=== PATIENT | male | born 1985 | race Caucasian/White ===

== ENCOUNTER 2017-11-12 21:09 | Inpatient (IN) | payer SELFPAY ==
[2017-11-12] MEDS ORDERED: NORMAL SALINE 1000 ML 1,000 ML IV ONE (22:02)
--- NOTE | 2017-11-12 22:02 | ER Document Report ---
ED Medical Screen (RME) - General Chief Complaint: Feet Swelling Stated Complaint: SKIN SWELLINGS Time Seen by Provider: 11/12/17 21:57 Mode of Arrival: Ambulatory Information source: Patient Notes: Patient presents complaining of enlarged lymph node to bilateral axillary area cervical and clavicular area. Patient complains of peripheral swelling to his lower extremities. Patient tachycardic. Patient denies any dyspnea or chest pain. hx: None I have greeted and performed a rapid initial assessment of this patient. A comprehensive ED assessment and evaluation of the patient, analysis of test results and completion of the medical decision making process will be conducted by additional ED providers. TRAVEL OUTSIDE OF THE [place] IN LAST 30 DAYS: No - Related Data Allergies/Adverse Reactions: No Known Allergies Allergy (Unverified 11/12/17 21:10) Physical Exam - Vital signs Vitals: Temp Pulse Resp BP Pulse Ox 99.6 F 127 H 20 124/74 100 11/12/17 21:25 11/12/17 21:25 11/12/17 21:25 11/12/17 21:25 11/12/17 21:25 Course - Vital Signs Vital signs: Temp Pulse Resp BP Pulse Ox 99.6 F 127 H 20 124/74 100 11/12/17 21:25 11/12/17 21:25 11/12/17 21:25 11/12/17 21:25 11/12/17 21:25
--- NOTE | 2017-11-12 22:29 | RADIOLOGY REPORT (SQ) ---
EXAM DESCRIPTION: CHEST 2 VIEWS COMPLETED DATE/TIME: 11/12/2017 10:14 pm REASON FOR STUDY: tachycardia, axillary/clavicular lymph node enlarg COMPARISON: None. EXAM PARAMETERS: NUMBER OF VIEWS: two views TECHNIQUE: Digital Frontal and Lateral radiographic views of the chest acquired. RADIATION DOSE: NA LIMITATIONS: none FINDINGS: LUNGS AND PLEURA: No opacities, masses or pneumothorax. Small to moderate left pleural ef fusion. MEDIASTINUM AND HILAR STRUCTURES: No masses or contour abnormalities. HEART AND VASCULAR STRUCTURES: Heart normal size. No evidence for failure. BONES: No acute findings. HARDWARE: None in the chest. OTHER: No other significant finding. IMPRESSION: SMALL TO MODERATE LEFT PLEURAL EFFUSION. LUNGS OTHERWISE CLEAR. TECHNICAL DOCUMENTATION: JOB ID: [id number] [employer]- All Rights Reserved Reading location - IP/workstation name: [email or web address]
[2017-11-12 23:05] LABS: ABSOLUTE BASOPHILS # (AUTO) 0.1 10^3/uL (0.0-0.2); ABSOLUTE EOSINOPHILS # (AUTO) 0.4 10^3/uL (0.0-0.6); ABSOLUTE LYMPHOCYTES (AUTO) 2.3 10^3/uL (0.5-4.7); ABSOLUTE MONOCYTES (AUTO) 1.5 10^3/uL (0.1-1.4); APPEARANCE,URINE CLEAR; BASOPHILS % (AUTO) 0.3 % (0-2); BILIRUBIN,URINE NEGATIVE (NEGATIVE); COLOR,URINE YELLOW; EOSINOPHILS % (AUTO) 2.2 % (0-6); GLUCOSE, URINE NEGATIVE (NEGATIVE); HEMATOCRIT 32.3 % (37.9-51.0); HEMOGLOBIN 11.1 g/dL (13.5-17.0); KETONES,URINE NEGATIVE (NEGATIVE); LEUKOCYTE ESTERASE,URINE NEGATIVE (NEGATIVE); LYMPHOCYTES % (AUTO) 13.4 % (13-45); MEAN CORPUSCULAR HEMOGLOBIN 28.2 pg (27.0-33.4); MEAN CORPUSCULAR HGB CONC 34.2 g/dL (32.0-36.0); MEAN CORPUSCULAR VOLUME 83 fl (80-97); MONOCYTES % (AUTO) 8.7 % (3-13); NITRITE,URINE NEGATIVE (NEGATIVE); PLATELET COUNT 390 10^3/uL (150-450); PROTEIN,URINE NEGATIVE (NEGATIVE); RED BLOOD COUNT 3.92 10^6/uL (4.35-5.55); RED CELL DISTRIBUTION WIDTH 13.1 % (11.5-14.0); SEGMENTED NEUTROPHILS % (AUTO) 75.4 % (42-78); TOTAL CELLS COUNTED % (AUTO) 100 %; URINE SPECIFIC GRAVITY 1.021; WHITE BLOOD COUNT 17.2 10^3/uL (4.0-10.5)
--- NOTE | 2017-11-12 23:07 | ER Document Report ---
ED General - General Chief Complaint: Feet Swelling Stated Complaint: SKIN SWELLINGS Time Seen by Provider: 11/12/17 21:57 Mode of Arrival: Ambulatory Notes: Patient is a 32-year-old male presents with complaint of records several weeks developing multiple large lymph nodes. He first noticed a mass in his left upper breast or pectoral muscle area. He saw Dr. mckeon told was probably a lipoma. It has increased in size now he is noticed lymph node in his neck, axilla, and also small lymph node or lump on the right side. Over the last couple days she has felt swelling in his lower extremities. He is also developed a fast heart rate. She never had anything like this before. Is otherwise healthy. 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 Denies any testicular pain or swelling. He does admit to some frequent urination. TRAVEL OUTSIDE OF THE [place] IN LAST 30 DAYS: No - Related Data Allergies/Adverse Reactions: No Known Allergies Allergy (Unverified 11/12/17 21:10) Past Medical History - General Information source: Patient - Social History Smoking Status: Current Every Day Smoker Frequency of alcohol use: None Drug Abuse: None Family History: Reviewed & Not Pertinent Review of Systems - Review of Systems Notes: My Normal Review Basic REVIEW OF SYSTEMS: CONSTITUTIONAL : Denies fever, chills, or sweats. Denies recent illness. CARDIOVASCULAR: Denies chest pain. Tachycardia RESPIRATORY: Denies cough, cold, or chest congestion. Some dyspnea GASTROINTESTINAL: Denies abdominal pain. Denies nausea, vomiting, or diarrhea. GENITOURINARY: Denies difficulty urinating, painful urination, burning, frequency, or blood in urine. MUSCULOSKELETAL: Edema in lower extremities SKIN: Denies rash or skin lesions. HEMATOLOGIC : Denies easy bruising or bleeding. LYMPHATIC: Swollen lymph nodes NEUROLOGICAL: Denies altered mental status or loss of consciousness. Denies headache. Denies weakness or paralysis or loss of use of either side. Denies problems with gait or speech. Denies sensory or motor loss. ALL OTHER SYSTEMS REVIEWED AND NEGATIVE. Physical Exam - Vital signs Vitals: Temp Pulse Resp BP Pulse Ox 99.6 F 127 H 20 124/74 100 11/12/17 21:25 11/12/17 21:25 11/12/17 21:25 11/12/17 21:25 11/12/17 21:25 - Notes Notes: General Appearance: Well nourished, alert, cooperative, no acute distress, no obvious discomfort. Vitals: reviewed, See vital signs table. 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 Left eye has normal extraocular motion., Conjuctiva clear Mouth: No decreasd moisture Neck: Supple, no neck tenderness, No thyromegaly, large lymph node in left neck. Lungs: No wheezing, No rales, No rhonci, No accessory muscle use, good air exchange bilaterally. Heart: Tachycardic rate, Regular rythm, No murmur, no rub Chest wall: Large mass in left upper pectoral area. Abdomen: Normal BS, soft, No rigidity, No abdominal tenderness, No guarding, no rebound, no abdominal masses, no organomegaly Genital: No scrotal masses to palpation. Extremities: strength 5/5 in all extremities, good pulses in all extremities, no swelling or tenderness in the extremities, 2+ bilateral lower extremity edema. Skin: warm, dry, appropriate color, no rash Neuro: speech clear, oriented x 3, normal affect, responds appropriately to questions. Course - Re-evaluation Re-evalutation: 11/13/17 01:[address]'s CT scan concerned that the patient most likely has cancer, probably lymphoma. I did discuss the case with the hospitalist, Dr. Ambriz, who requested I speak with the on-call oncologist first. I spoke with Dr. Canales , she says she feels comfortable with working up the patient here. She said the patient will need an excisional lymph node biopsy followed by PET scan. I spoke with the patient who agrees with admission. Dictation of this chart was performed using voice recognition software; therefore, there may be some unintended grammatical errors. - Vital Signs Vital signs: Temp Pulse Resp BP Pulse Ox 99.6 F 127 H 20 124/74 100 11/12/17 21:25 11/12/17 21:25 11/12/17 21:25 11/12/17 21:25 11/12/17 21:25 - Laboratory Result Diagrams: 11/12/17 22:40 11/12/17 22:40 Laboratory results interpreted by me: 11/12/17 11/12/17 11/12/17 22:40 22:40 22:40 WBC 17.2 H RBC 3.92 L Hgb 11.1 L Hct 32.3 L Absolute Neutrophils 13.0 H Absolute Monocytes 1.5 H Glucose 125 H NT-Pro-B Natriuret Pep 195 H Albumin 3.4 L Urine Urobilinogen 11/12/17 22:40 WBC RBC Hgb Hct Absolute Neutrophils Absolute Monocytes Glucose NT-Pro-B Natriuret Pep Albumin Urine Urobilinogen 2.0 H - EKG Interpretation by Me Additional EKG results interpreted by me: 11/12/17 23:01 EKG is reviewed and interpreted by me. EKG shows sinus tachycardia with rate of [address] segment elevation or ischemic T-wave inversions. [place] interval , QRS duration, QTc intervals are within normal range. No old EKG available for comparison. Discharge - Discharge Clinical Impression: Lymphadenopathy, Pleural effusion Edema Qualifiers: Edema type: localized Qualified Code(s): R60.0 - Localized edema Condition: Stable Disposition: ADMITTED INPATIENT Admitting Provider: Hospitalist Unit Admitted: Telemetry
[2017-11-12 23:12] LABS: ALANINE AMINOTRANSFERASE 28 U/L (21-72); ALBUMIN 3.4 g/dL (3.5-5.0); ALKALINE PHOSPHATASE 117 U/L (38-126); ANION GAP 10 (5-19); ASPARTATE AMINO TRANSFERASE 25 U/L (17-59); BILIRUBIN,DIRECT 0.3 mg/dL (0.0-0.4); BILIRUBIN,TOTAL 0.3 mg/dL (0.2-1.3); BLOOD UREA NITROGEN 16 mg/dL (7-20); CALCIUM 8.8 mg/dL (8.4-10.2); CARBON DIOXIDE 28 mmol/L (22-30); CHLORIDE 103 mmol/L (98-107); GLUCOSE 125 mg/dL (75-110); POTASSIUM 4.6 mmol/L (3.6-5.0); SODIUM 140.5 mmol/L (137-145); TOTAL PROTEIN 6.7 g/dL (6.3-8.2)
--- NOTE | 2017-11-13 01:17 | RADIOLOGY REPORT (SQ) ---
EXAM DESCRIPTION: CT ABDOMEN PELVIS WITH IV CONTRAST, CT CHEST ANGIOGRAPHY WITH IV CONTRAST COMPLETED DATE/TME: 11/13/2017 00:00 EXAM DESCRIPTION: CTA of the chest per PE protocol with contrast. CLINICAL HISTORY: edema, enlarged lymphnodes COMPARISON: None Available. TECHNIQUE: CTA of the chest obtained following the uncomplicated intravenous administration of 100 mL Isovue-370. 3-D/MIP reformatted images of the chest available for evaluation. CT of the abdomen and pelvis was then performed with contrast. DLP: 3041.89 mGycm FINDINGS: Chest: Pulmonary arteries: Contrast bolus is suboptimal. No central pulmonary embolus identified. Evaluation of the segmental and subsegmental pulmonary arterial branches is suboptimal due to contrast bolus timing. Thyroid:No abnormalities of the visualized thyroid. Great Vessels:Great vessels have normal anatomic configuration. Thoracic Aorta:No abnormalities of the thoracic aorta identified. Heart:No cardiomegaly, significant pericardial effusion, or coronary artery atherosclerosis Lymph Nodes: Scattered mediastinal lymph nodes are increased in number but not definitely enlarged by CT criteria. Numerous significantly enlarged left axillary lymph nodes, the largest measures 5.5 x 3.9 cm. Diffuse fat stranding around the left axillary lymph nodes as well as central decreased density which may suggest central necrosis. Enlarged right axillary lymph nodes, the largest measuring 2.4 x 2.2 cm. Enlarged left supraclavicular lymph nodes, the largest measuring 1.1 cm short axis dimension. Esophagus:No abnormalities of the esophagus identified. Other:No additional findings. Lungs: Compressive atelectasis of the left lung base. Minimal discoid atelectasis in the right lung base. Pleura: Small left pleural effusion. No pneumothorax. Trachea/Airways:No abnormalities of the visualized trachea or airways. Bones:No destructive osseous lesions. Abdomen: Liver: The liver has normal size and density. No intrahepatic mass or biliary dilatation. Gallbladder: No calcified gallstones. Spleen, Pancreas, and Adrenal Glands: The spleen, pancreas, and adrenal glands are unremarkable. Kidneys: The kidneys have normal size and contour without evidence of solid mass or hydronephrosis. Vasculature: The aorta and IVC have normal caliber and position. The portal vein is patent. The proximal visceral and renal arteries are patent. Stomach: The stomach and duodenum have normal course. Other: No free intraperitoneal air. No free fluid or intra-abdominal or retroperitoneal lymphadenopathy. Pelvis: Bladder: Urinary bladder is unremarkable. Bowel: No dilated loops of large or small bowel. Appendix: Normal appendix. Pelvis: Prostate is not enlarged. IMPRESSION: 1. No central pulmonary embolus identified. Evaluation of the segmental and subsegmental pulmonary arterial branches is suboptimal due to contrast bolus timing. 2. Extensive left axillary lymphadenopathy with the largest lymph node measuring 5.5 cm in greatest dimension. Some of these lymph nodes demonstrate central decreased density which may represent necrosis. 3. There is also lymphadenopathy in the right axillary region as well as the left supraclavicular region as detailed above. There are also increased number of visualized mediastinal lymph nodes however these are not enlarged by CT criteria. 4. Small left pleural effusion with mild left basilar compressive atelectasis. 5. No acute abnormality within the abdomen or pelvis identified. This exam was performed according to our departmental dose-optimization program, which includes automated exposure control, adjustment of the mA and/or kV according to patient size and/or use of iterative reconstruction technique.
[2017-11-13] MEDS ORDERED: ACETAMINOPHEN 325 MG TABLET PO PRN (02:23)
[2017-11-13] MEDS ORDERED: MAG HYDROX/AL HYDROX/SIMETH SUSP 30 ML UDCUP PO PRN (02:23)
[2017-11-13] MEDS ORDERED: IPRATROPIUM/ALBUTEROL 0.5-2.5 MG/3 ML AMPUL NEB PRN (02:23)
[2017-11-13] MEDS ORDERED: MAGNESIUM HYDROXIDE SUSP 30 ML UDCUP PO PRN (02:23)
[2017-11-13] MEDS: BUPRENORPHINE HCL 2 MG SUBLINGUAL TABLET SL SCH ×3 (02:46→17:19)
[2017-11-13] MEDS: HEPARIN SOD (PORCINE) 5,000 UNIT/ML 1 ML SYRINGE SUBCUT SCH ×3 (05:56→21:09)
--- NOTE | 2017-11-13 06:00 | PDOC H&P ---
History of Present Illness Admission Date/PCP: 11/13/17 01:47 Patient complains of: Feet swelling History of Present Illness: KHADIJAH RICE is a 32 year old male with past medical history of chronic pain on Suboxone 8 mg every 8 hours, ADHD on Adderall and six-months of left axillary mass. Patient sought evaluation at urgent care and was preliminarily diagnosed with lipoma he has subsequently developed several more masses about the neck and right axilla in addition to lower extremity swelling. In the emergency room he is found to have diffuse lymphadenopathy, CT chest reveals extensive left axillary lymphadenopathy with left pleural effusion. He is referred to the hospitalist for admission. Patient denies history of lymphoma, shortness of breath, fevers, weight loss. Past Medical History Medical History: None Cardiac Medical History: Reports: None Pulmonary Medical History: Reports: None EENT Medical History: Reports: None Neurological Medical History: Reports: None Endocrine Medical History: Reports: None Renal/ Medical History: Reports: None Malignancy Medical History: Reports: None GI Medical History: Reports: None Musculoskeltal Medical History: Reports: None Skin Medical History: Reports: None Psychiatric Medical History: Reports: Attention Deficit Hyperactivity Disorder, Other - Chronic pain Traumatic Medical History: Reports: None Hematology: Reports: None Infectious Medical History: Reports: None Past Surgical History Past Surgical History: Reports: Tonsillectomy Social History Information Source: Patient Smoking Status: Current Every Day Smoker Cigarettes Packs Per Day: 1 Number of Years Smokin Frequency of Alcohol Use: Rare Hx Recreational Drug Use: No Drugs: None Hx Prescription Drug Abuse: No - Advance Directive Resuscitation Status: Full Code Family History Family History: Hypertension Parental Family History Reviewed: Yes Children Family History Reviewed: Yes Sibling(s) Family History Reviewed.: Yes Medication/Allergy Allergies/Adverse Reactions: No Known Allergies Allergy (Unverified 11/12/17 21:10) Review of Systems Constitutional: PRESENT: as per HPI, fatigue, weakness, weight gain. ABSENT: anorexia, chills, fever(s) Eyes: ABSENT: visual disturbances Ears: ABSENT: hearing changes Cardiovascular: ABSENT: chest pain, dyspnea on exertion, edema, orthropnea, palpitations Respiratory: ABSENT: cough, hemoptysis Gastrointestinal: ABSENT: abdominal pain, constipation, diarrhea, hematemesis, hematochezia, nausea, vomiting Genitourinary: ABSENT: dysuria, hematuria Musculoskeletal: PRESENT: muscle weakness Integumentary: ABSENT: rash, wounds Neurological: ABSENT: abnormal gait, abnormal speech, confusion, dizziness, focal weakness, syncope Psychiatric: ABSENT: anxiety, depression, homidical ideation, suicidal ideation Endocrine: ABSENT: cold intolerance, heat intolerance, polydipsia, polyuria Hematologic/Lymphatic: PRESENT: as per HPI, lymphadenopathy. ABSENT: easy bleeding, easy bruising Physical Exam Vital Signs: Temp Pulse Resp BP Pulse Ox 97.9 F 92 20 100/70 95 11/13/17 03:24 11/13/17 03:24 11/13/17 03:24 11/13/17 03:24 11/13/17 03:24 Intake & Output 11/11/17 11/12/17 11/13/17 11:59 11:59 11:59 Intake Total 10 Balance 10 Weight 108.3 kg General appearance: PRESENT: cooperative, mild distress, well-developed, well- nourished. 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 ABSENT: scleral icterus Ear exam: PRESENT: normal external ear exam Mouth exam: PRESENT: moist, tongue midline Neck exam: PRESENT: full ROM, lymphadenopathy. ABSENT: carotid bruit, JVD, thyromegaly Respiratory exam: PRESENT: clear to auscultation sujata. ABSENT: rales, rhonchi, wheezes Cardiovascular exam: PRESENT: RRR. ABSENT: diastolic murmur, rubs, systolic murmur Pulses: PRESENT: normal dorsalis pedis pul Vascular exam: PRESENT: normal capillary refill GI/Abdominal exam: PRESENT: normal bowel sounds, soft. ABSENT: distended, guarding, mass, organolmegaly, rebound, tenderness Rectal exam: PRESENT: deferred Extremities exam: PRESENT: full ROM, pedal edema, +2 edema. ABSENT: calf tenderness, clubbing Neurological exam: PRESENT: alert, awake, oriented to person, oriented to place , oriented to time, oriented to situation, CN II-XII grossly intact. ABSENT: motor sensory deficit Psychiatric exam: PRESENT: anxious, appropriate affect Skin exam: PRESENT: dry, intact, warm. ABSENT: cyanosis, rash Results Impressions: Chest X-Ray 11/12/17 21:59 IMPRESSION: SMALL TO MODERATE LEFT PLEURAL EFFUSION. LUNGS OTHERWISE CLEAR. Abdomen/Pelvis CT 11/13/17 00:00 IMPRESSION: 1. No central pulmonary embolus identified. Evaluation of the segmental and subsegmental pulmonary arterial branches is suboptimal due to contrast bolus timing. 2. Extensive left axillary lymphadenopathy with the largest lymph node measuring 5.5 cm in greatest dimension. Some of these lymph nodes demonstrate central decreased density which may represent necrosis. 3. There is also lymphadenopathy in the right axillary region as well as the left supraclavicular region as detailed above. There are also increased number of visualized mediastinal lymph nodes however these are not enlarged by CT criteria. 4. Small left pleural effusion with mild left basilar compressive atelectasis. 5. No acute abnormality within the abdomen or pelvis identified. This exam was performed according to our departmental dose-optimization program, which includes automated exposure control, adjustment of the mA and/or kV according to patient size and/or use of iterative reconstruction technique. Chest/Abdomen CTA 11/13/17 00:00 IMPRESSION: 1. No central pulmonary embolus identified. Evaluation of the segmental and subsegmental pulmonary arterial branches is suboptimal due to contrast bolus timing. 2. Extensive left axillary lymphadenopathy with the largest lymph node measuring 5.5 cm in greatest dimension. Some of these lymph nodes demonstrate central decreased density which may represent necrosis. 3. There is also lymphadenopathy in the right axillary region as well as the left supraclavicular region as detailed above. There are also increased number of visualized mediastinal lymph nodes however these are not enlarged by CT criteria. 4. Small left pleural effusion with mild left basilar compressive atelectasis. 5. No acute abnormality within the abdomen or pelvis identified. This exam was performed according to our departmental dose-optimization program, which includes automated exposure control, adjustment of the mA and/or kV according to patient size and/or use of iterative reconstruction technique. Assessment & Plan - Diagnosis (1) Lymphadenopathy Is this a current diagnosis for this admission?: Yes Plan: Likely secondary to lymphoma given history of rapid progression and lymphadenopathy with central necrosis, surgical consult for tissue biopsy, oncology consult ordered. (2) Edema Qualifiers: Edema type: localized Qualified Code(s): R60.0 - Localized edema Is this a current diagnosis for this admission?: Yes Plan: Secondary to #1 avoid diuresis (3) Pleural effusion Is this a current diagnosis for this admission?: Yes Plan: Consider thoracentesis if symptomatic or tissue diagnosis needed. - Time Time Spent: 50 to 70 Minutes - Inpatient Certification Medical Necessity: Need Close Monitoring Due to Risk of Patient Decompensation
--- NOTE | 2017-11-13 07:49 | EKG REPORT ---
SEVERITY:- OTHERWISE NORMAL ECG - SINUS TACHYCARDIA : Confirmed by: Kimi Monteiro MD 13-Nov-2017 07:49:10
[2017-11-13] MEDS: IPRATROPIUM/ALBUTEROL 0.5-2.5 MG/3 ML AMPUL NEB SCH ×2 (08:15→20:43)
[2017-11-13] MEDS: DOCUSATE SODIUM 100 MG CAPSULE PO SCH ×2 (09:28→17:19)
--- NOTE | 2017-11-13 10:00 | PDOC CONSULTATION ---
Consultation Consult Date: 11/13/17 Consult reason:: Hematology/Oncology consultation was requested for patient with lymphadenopathy concerning for lymphoma. History of Present Illness Admission Date/PCP: 11/13/17 01:47 History of Present Illness: KHADIJAH RICE is a 32 year old male without significant past medical history who presented with a lump under his left arm which he noticed in Apr 2017. He went to an urgent care facility and at that time, it was thought to be a lipoma. Therefore, he watched this, but over the past few months, he noticed new lumps in the opposite axilla as well as his neck. He denies any fever, weight loss, chills, or sweats. He has been feeling well otherwise, without any other symptoms. These are not painful, just concerning because they are growing and spreading. Past Medical History Cardiac Medical History: Reports: None Pulmonary Medical History: Reports: None EENT Medical History: Reports: None Neurological Medical History: Reports: None Endocrine Medical History: Reports: None Renal/ Medical History: Reports: None Malignancy Medical History: Reports: None GI Medical History: Reports: None Musculoskeltal Medical History: Reports: None Skin Medical History: Reports: None Psychiatric Medical History: Reports: Attention Deficit Hyperactivity Disorder, Other - Chronic pain Traumatic Medical History: Reports: None Hematology: Reports: None Infectious Medical History: Reports: None Past Surgical History Past Surgical History: Reports: Tonsillectomy Social History Information Source: Patient Lives with: Spouse/Significant other Smoking Status: Current Every Day Smoker Cigarettes Packs Per Day: 1 Number of Years Smokin Frequency of Alcohol Use: Rare Hx Recreational Drug Use: No Drugs: None Hx Prescription Drug Abuse: No Past Social History Note: Lives with girlfriend and daughter. Works as Night [employer]. - Advance Directive Resuscitation Status: Full Code Family History Family History: Hypertension Family History: Aunt with cancer, grandparents with unknown cancers. Parental Family History Reviewed: Yes Children Family History Reviewed: Yes Sibling(s) Family History Reviewed.: Yes Medication/Allergy Home Medications: Buprenorphine HCl [Subutex 8 mg Sublingual Tablet] 8 mg SL TID 11/13/17 Dextroamphetamine/Amphetamine [Adderall 10 mg Tablet] 10 mg PO DAILY 11/13/17 Ibuprofen [Motrin 800 mg Tablet] 800 mg PO Q8HP PRN 11/13/17 Allergies/Adverse Reactions: No Known Allergies Allergy (Unverified 11/12/17 21:10) Review of Systems Constitutional: ABSENT: chills, fatigue, fever(s), headache(s), night sweats, weight loss Eyes: ABSENT: visual disturbances Ears: ABSENT: hearing changes Nose, Mouth, and Throat: ABSENT: sore throat Cardiovascular: ABSENT: chest pain Respiratory: ABSENT: dyspnea Gastrointestinal: ABSENT: abdominal pain, constipation, vomiting Genitourinary: ABSENT: dysuria Musculoskeletal: ABSENT: muscle weakness Integumentary: PRESENT: lesions. ABSENT: rash Neurological: ABSENT: frequent falls, weakness Psychiatric: PRESENT: anxiety Hematologic/Lymphatic: PRESENT: lymphadenopathy Physical Exam Vital Signs: Temp Pulse Resp BP Pulse Ox 98.2 F 79 14 96/45 L 100 11/13/17 07:56 11/13/17 07:56 11/13/17 07:56 11/13/17 07:56 11/13/17 07:56 Intake & Output 11/12/17 11/13/17 11/14/17 06:59 06:59 06:59 Intake Total 250 Output Total 0 Balance 250 Weight 108.3 kg General appearance: PRESENT: no acute distress, well-developed, well-nourished Exam: 32 year old male. Eye exam: PRESENT: other - Right eye deviates laterally. Mouth exam: PRESENT: moist, tongue midline Teeth exam: ABSENT: poor dentation Neck exam: PRESENT: lymphadenopathy. ABSENT: tenderness Respiratory exam: PRESENT: clear to auscultation sujata, unlabored Cardiovascular exam: PRESENT: RRR. ABSENT: systolic murmur Pulses: PRESENT: normal dorsalis pedis pul GI/Abdominal exam: PRESENT: soft. ABSENT: organolmegaly, tenderness Extremities exam: ABSENT: pedal edema Musculoskeletal exam: PRESENT: normal inspection Neurological exam: PRESENT: alert, awake, oriented to person, oriented to place , oriented to time, oriented to situation Psychiatric exam: PRESENT: appropriate affect Focused psych exam: ABSENT: pressured speech, restlessness Skin exam: PRESENT: normal color Additional comments: Right and left axillary lymphadenopathy, as well as LNs palpable in the left anterior cervical and left supraclavicular, but none in the right neck or groin. Results Impressions: Chest X-Ray 11/12/17 21:59 IMPRESSION: SMALL TO MODERATE LEFT PLEURAL EFFUSION. LUNGS OTHERWISE CLEAR. Abdomen/Pelvis CT 11/13/17 00:00 IMPRESSION: 1. No central pulmonary embolus identified. Evaluation of the segmental and subsegmental pulmonary arterial branches is suboptimal due to contrast bolus timing. 2. Extensive left axillary lymphadenopathy with the largest lymph node measuring 5.5 cm in greatest dimension. Some of these lymph nodes demonstrate central decreased density which may represent necrosis. 3. There is also lymphadenopathy in the right axillary region as well as the left supraclavicular region as detailed above. There are also increased number of visualized mediastinal lymph nodes however these are not enlarged by CT criteria. 4. Small left pleural effusion with mild left basilar compressive atelectasis. 5. No acute abnormality within the abdomen or pelvis identified. This exam was performed according to our departmental dose-optimization program, which includes automated exposure control, adjustment of the mA and/or kV according to patient size and/or use of iterative reconstruction technique. Chest/Abdomen CTA 11/13/17 00:00 IMPRESSION: 1. No central pulmonary embolus identified. Evaluation of the segmental and subsegmental pulmonary arterial branches is suboptimal due to contrast bolus timing. 2. Extensive left axillary lymphadenopathy with the largest lymph node measuring 5.5 cm in greatest dimension. Some of these lymph nodes demonstrate central decreased density which may represent necrosis. 3. There is also lymphadenopathy in the right axillary region as well as the left supraclavicular region as detailed above. There are also increased number of visualized mediastinal lymph nodes however these are not enlarged by CT criteria. 4. Small left pleural effusion with mild left basilar compressive atelectasis. 5. No acute abnormality within the abdomen or pelvis identified. This exam was performed according to our departmental dose-optimization program, which includes automated exposure control, adjustment of the mA and/or kV according to patient size and/or use of iterative reconstruction technique. Status: Image reviewed by me Assessment & Plan - Diagnosis (1) Lymphadenopathy Is this a current diagnosis for this admission?: Yes Plan: I discussed the CT scans and my findings with the patient in detail. He understands that this looks like clinical Stage II Lymphoma. I have asked Dr. Murray to see him for excisional biopsy of a lymph node with Flow Cytometry and cytogenetics. I will order LDH today. If Lymphoma is confirmed, then PET/CT will be needed. He will need to be discharged for this. I see no other medical reason at present for patient to remain in the hospital after biopsy. I will follow-up for results of the path and to arrange further testing and treatment. - Plan Summary Plan Summary: Thank you for this consultation. Please call me directly with any questions or concerns. I will continue to follow him.
--- NOTE | 2017-11-13 18:23 | PDOC CONSULTATION ---
Consultation Consult Date: 11/13/17 Consult reason:: Possible lymphoma History of Present Illness Admission Date/PCP: 11/13/17 01:47 History of Present Illness: KHADIJAH RICE is a 32 year old male seen at the request of Dr. Canales. Patient has a 1-2 month history of swollen lymph nodes in the left axilla and neck. Patient reports that this "swelling" is worsening and has spread to his right axilla. Patient presented to the emergency department where CT scan was performed noting multiple enlarged lymph nodes in the supraclavicular, axillary , and mediastinal positions. The patient denies any chest pain, shortness of breath, fevers, chills, nausea, vomiting, malaise, fatigue, orthostasis, dizziness, or other significant symptom. Nothing makes his lymphadenopathy better or worse. Past Medical History Cardiac Medical History: Reports: None Pulmonary Medical History: Reports: None EENT Medical History: Reports: None Neurological Medical History: Reports: None Endocrine Medical History: Reports: None Renal/ Medical History: Reports: None Malignancy Medical History: Reports: None GI Medical History: Reports: None Musculoskeltal Medical History: Reports: None Skin Medical History: Reports: None Psychiatric Medical History: Reports: Attention Deficit Hyperactivity Disorder, Other - Chronic pain Traumatic Medical History: Reports: None Hematology: Reports: None Infectious Medical History: Reports: None Past Surgical History Past Surgical History: Reports: Tonsillectomy Social History Lives with: Spouse/Significant other Smoking Status: Current Every Day Smoker Cigarettes Packs Per Day: 1 Number of Years Smokin Frequency of Alcohol Use: Rare Hx Recreational Drug Use: No Drugs: None Hx Prescription Drug Abuse: No - Advance Directive Resuscitation Status: Full Code Family History Family History: Hypertension Parental Family History Reviewed: Yes Children Family History Reviewed: Yes Sibling(s) Family History Reviewed.: Yes Medication/Allergy Home Medications: Buprenorphine HCl [Subutex 8 mg Sublingual Tablet] 8 mg SL TID 11/13/17 Dextroamphetamine/Amphetamine [Adderall 10 mg Tablet] 10 mg PO DAILY 11/13/17 Ibuprofen [Motrin 800 mg Tablet] 800 mg PO Q8HP PRN 11/13/17 Allergies/Adverse Reactions: No Known Allergies Allergy (Unverified 11/12/17 21:10) Review of Systems Constitutional: ABSENT: anorexia, chills, fatigue Eyes: ABSENT: visual disturbances Ears: ABSENT: hearing changes Nose, Mouth, and Throat: ABSENT: sore throat Cardiovascular: ABSENT: chest pain, edema Respiratory: ABSENT: cough, dyspnea Gastrointestinal: ABSENT: abdominal pain, bloating, diarrhea Genitourinary: ABSENT: dysuria Musculoskeletal: ABSENT: back pain, deformity Integumentary: ABSENT: erythema, pruritus, rash Neurological: ABSENT: abnormal movements, abnormal speech, numbness, paresthesias, syncope Psychiatric: ABSENT: anxiety, depression, hallucinations Endocrine: ABSENT: cold intolerance, heat intolerance Hematologic/Lymphatic: ABSENT: easy bleeding, easy bruising Physical Exam Vital Signs: Temp Pulse Resp BP Pulse Ox 97.9 F 80 16 105/58 L 100 11/13/17 15:33 11/13/17 15:33 11/13/17 15:33 11/13/17 15:33 11/13/17 15:33 Intake & Output 11/12/17 11/13/17 11/14/17 06:59 06:59 06:59 Intake Total 250 300 Output Total 0 Balance 250 300 Weight 108.3 kg General appearance: PRESENT: no acute distress Head exam: PRESENT: atraumatic, normocephalic Eye exam: PRESENT: EOMI, PERRLA. ABSENT: scleral icterus Mouth exam: PRESENT: moist, neck supple Neck exam: PRESENT: lymphadenopathy - Left supraclavicular and cervical. ABSENT : meningismus, tenderness, thyromegaly, tracheal deviation Respiratory exam: PRESENT: clear to auscultation sujata, unlabored. ABSENT: chest wall tenderness, rhonchi, wheezes Cardiovascular exam: PRESENT: RRR Pulses: PRESENT: normal radial pulses Vascular exam: PRESENT: normal capillary refill. ABSENT: pallor GI/Abdominal exam: PRESENT: normal bowel sounds, soft. ABSENT: distended, tenderness Rectal exam: PRESENT: deferred Extremities exam: ABSENT: clubbing Musculoskeletal exam: ABSENT: deformity Neurological exam: PRESENT: alert, awake, oriented to person, oriented to place , oriented to time, oriented to situation, CN II-XII grossly intact. ABSENT: motor sensory deficit Psychiatric exam: ABSENT: agitated, anxious, depressed Focused psych exam: ABSENT: delusional Skin exam: ABSENT: cyanosis Additional comments: Large left axillary lymph node, approximately 4 cm in palpable diameter. Results Impressions: Chest X-Ray 11/12/17 21:59 IMPRESSION: SMALL TO MODERATE LEFT PLEURAL EFFUSION. LUNGS OTHERWISE CLEAR. Abdomen/Pelvis CT 11/13/17 00:00 IMPRESSION: 1. No central pulmonary embolus identified. Evaluation of the segmental and subsegmental pulmonary arterial branches is suboptimal due to contrast bolus timing. 2. Extensive left axillary lymphadenopathy with the largest lymph node measuring 5.5 cm in greatest dimension. Some of these lymph nodes demonstrate central decreased density which may represent necrosis. 3. There is also lymphadenopathy in the right axillary region as well as the left supraclavicular region as detailed above. There are also increased number of visualized mediastinal lymph nodes however these are not enlarged by CT criteria. 4. Small left pleural effusion with mild left basilar compressive atelectasis. 5. No acute abnormality within the abdomen or pelvis identified. This exam was performed according to our departmental dose-optimization program, which includes automated exposure control, adjustment of the mA and/or kV according to patient size and/or use of iterative reconstruction technique. Chest/Abdomen CTA 11/13/17 00:00 IMPRESSION: 1. No central pulmonary embolus identified. Evaluation of the segmental and subsegmental pulmonary arterial branches is suboptimal due to contrast bolus timing. 2. Extensive left axillary lymphadenopathy with the largest lymph node measuring 5.5 cm in greatest dimension. Some of these lymph nodes demonstrate central decreased density which may represent necrosis. 3. There is also lymphadenopathy in the right axillary region as well as the left supraclavicular region as detailed above. There are also increased number of visualized mediastinal lymph nodes however these are not enlarged by CT criteria. 4. Small left pleural effusion with mild left basilar compressive atelectasis. 5. No acute abnormality within the abdomen or pelvis identified. This exam was performed according to our departmental dose-optimization program, which includes automated exposure control, adjustment of the mA and/or kV according to patient size and/or use of iterative reconstruction technique. Assessment & Plan - Diagnosis (1) Lymphadenopathy Is this a current diagnosis for this admission?: Yes - Plan Summary Plan Summary: This is a 32-year-old male with significant lymphadenopathy. There is concern for lymphoma. Patient will require excisional biopsy of the lymph node or diagnosis. Plan to perform biopsy tomorrow. Risks/benefits discussed, informed consent obtained, and all questions answered.
[2017-11-13] MEDS ORDERED: DEXTROSE 40% GEL 15 GM TUBE PO PRN ×2 (18:24)
[2017-11-13] MEDS ORDERED: DEXTROSE 50%-WATER 25 GM/50 ML DISP.SYRIN IV PRN ×2 (18:24)
[2017-11-13] MEDS ORDERED: GLUCAGON,HUMAN RECOMB 1 MG INJ SUBCUT PRN (18:24)
[2017-11-14] MEDS: BUPRENORPHINE HCL 2 MG SUBLINGUAL TABLET SL SCH ×3 (01:40→17:16)
[2017-11-14] MEDS: HEPARIN SOD (PORCINE) 5,000 UNIT/ML 1 ML SYRINGE SUBCUT SCH ×2 (05:02→14:26)
[2017-11-14 05:31] LABS: ABSOLUTE BASOPHILS # (AUTO) 0.1 10^3/uL (0.0-0.2); ABSOLUTE EOSINOPHILS # (AUTO) 0.4 10^3/uL (0.0-0.6); ABSOLUTE LYMPHOCYTES (AUTO) 1.9 10^3/uL (0.5-4.7); ABSOLUTE MONOCYTES (AUTO) 1.6 10^3/uL (0.1-1.4); ABSOLUTE NEUT (AUTO) 10.9 10^3/uL (1.7-8.2); BASOPHILS % (AUTO) 0.4 % (0-2); EOSINOPHILS % (AUTO) 2.5 % (0-6); HEMATOCRIT 32.2 % (37.9-51.0); LYMPHOCYTES % (AUTO) 13.1 % (13-45); MEAN CORPUSCULAR HEMOGLOBIN 28.3 pg (27.0-33.4); MEAN CORPUSCULAR VOLUME 83 fl (80-97); MONOCYTES % (AUTO) 10.8 % (3-13); PLATELET COUNT 337 10^3/uL (150-450); RED BLOOD COUNT 3.87 10^6/uL (4.35-5.55); RED CELL DISTRIBUTION WIDTH 13.2 % (11.5-14.0); SEGMENTED NEUTROPHILS % (AUTO) 73.2 % (42-78); TOTAL CELLS COUNTED % (AUTO) 100 %; WHITE BLOOD COUNT 14.9 10^3/uL (4.0-10.5)
[2017-11-14 06:02] LABS: ANION GAP 7 (5-19); BLOOD UREA NITROGEN 14 mg/dL (7-20); CALCIUM 8.7 mg/dL (8.4-10.2); CARBON DIOXIDE 28 mmol/L (22-30); CHLORIDE 107 mmol/L (98-107); GLUCOSE 111 mg/dL (75-110); POTASSIUM 4.8 mmol/L (3.6-5.0); SODIUM 141.9 mmol/L (137-145)
[2017-11-14] MEDS ORDERED: MIDAZOLAM 2 MG/2 ML INJ ONE ×2 (08:02→09:44)
[2017-11-14] MEDS ORDERED: FENTANYL CITRATE INJ/PF 100 MCG/2 ML AMPUL ONE (08:02)
[2017-11-14] MEDS ORDERED: PROPOFOL INJ 200 MG/20 ML VIAL IV ONE (08:03)
[2017-11-14] MEDS ORDERED: CEFAZOLIN INJ 1 GM VIAL ONE (08:23)
[2017-11-14] MEDS ORDERED: PROMETHAZINE HCL INJ 25 MG/1 ML VIAL IV PRN ×2 (08:42)
[2017-11-14] MEDS ORDERED: DIPHENHYDRAMINE HCL 50 MG/ML VIAL IV PRN (08:42)
[2017-11-14] MEDS ORDERED: ONDANSETRON HCL INJ/PF 4 MG/2 ML SDV IV PRN ×2 (08:42→10:08)
[2017-11-14] MEDS ORDERED: MORPHINE SULFATE 10 MG/ML INJ IV PRN (08:42)
[2017-11-14] MEDS ORDERED: MEPERIDINE HCL/PF INJ 25 MG/1 ML DISP.SYRIN IV PRN (08:42)
[2017-11-14] MEDS ORDERED: FENTANYL CITRATE INJ/PF 100 MCG/2 ML AMPUL IV PRN ×3 (08:42)
[2017-11-14] MEDS ORDERED: OXYCODONE-ACETAMINOPHEN 5-325 MG TABLET PO PRN ×2 (08:42)
[2017-11-14] MEDS: IPRATROPIUM/ALBUTEROL 0.5-2.5 MG/3 ML AMPUL NEB SCH (08:44)
--- NOTE | 2017-11-14 09:02 | PDOC PROGRESS REPORT ---
Subjective Progress Note for:: 11/14/17 Subjective:: Patient currently in surgery and was not evaluated by me this morning. I will follow-up once pathology results are available. OK for discharge from my standpoint to follow-up in office. Reason For Visit: PLEURAL EFFUSION,LYMPHOMA Physical Exam Vital Signs: Temp Pulse Resp BP Pulse Ox 99.2 F 95 17 101/57 L 94 11/14/17 08:00 11/14/17 08:00 11/14/17 08:00 11/14/17 08:00 11/14/17 08:00 Intake & Output 11/13/17 11/14/17 11/15/17 06:59 06:59 06:59 Intake Total 250 1571 Output Total 0 Balance 250 1571 Weight 108.3 kg 107.9 kg Results Laboratory Results: 11/14/17 05:12 11/14/17 05:12 11/14/17 11/14/17 05:12 05:12 WBC 14.9 H RBC 3.87 L Hgb 11.0 L Hct 32.2 L MCV 83 MCH 28.3 MCHC 34.0 RDW 13.2 Plt Count 337 Seg Neutrophils % 73.2 Lymphocytes % 13.1 Monocytes % 10.8 Eosinophils % 2.5 Basophils % 0.4 Absolute Neutrophils 10.9 H Absolute Lymphocytes 1.9 Absolute Monocytes 1.6 H Absolute Eosinophils 0.4 Absolute Basophils 0.1 Sodium 141.9 Potassium 4.8 Chloride 107 Carbon Dioxide 28 Anion Gap 7 BUN 14 Creatinine 0.65 Est GFR ( Amer) > 60 Est GFR (Non-Af Amer) > 60 Glucose 111 H Calcium 8.7 Impressions: Chest X-Ray 11/12/17 21:59 IMPRESSION: SMALL TO MODERATE LEFT PLEURAL EFFUSION. LUNGS OTHERWISE CLEAR. Abdomen/Pelvis CT 11/13/17 00:00 IMPRESSION: 1. No central pulmonary embolus identified. Evaluation of the segmental and subsegmental pulmonary arterial branches is suboptimal due to contrast bolus timing. 2. Extensive left axillary lymphadenopathy with the largest lymph node measuring 5.5 cm in greatest dimension. Some of these lymph nodes demonstrate central decreased density which may represent necrosis. 3. There is also lymphadenopathy in the right axillary region as well as the left supraclavicular region as detailed above. There are also increased number of visualized mediastinal lymph nodes however these are not enlarged by CT criteria. 4. Small left pleural effusion with mild left basilar compressive atelectasis. 5. No acute abnormality within the abdomen or pelvis identified. This exam was performed according to our departmental dose-optimization program, which includes automated exposure control, adjustment of the mA and/or kV according to patient size and/or use of iterative reconstruction technique. Chest/Abdomen CTA 11/13/17 00:00 IMPRESSION: 1. No central pulmonary embolus identified. Evaluation of the segmental and subsegmental pulmonary arterial branches is suboptimal due to contrast bolus timing. 2. Extensive left axillary lymphadenopathy with the largest lymph node measuring 5.5 cm in greatest dimension. Some of these lymph nodes demonstrate central decreased density which may represent necrosis. 3. There is also lymphadenopathy in the right axillary region as well as the left supraclavicular region as detailed above. There are also increased number of visualized mediastinal lymph nodes however these are not enlarged by CT criteria. 4. Small left pleural effusion with mild left basilar compressive atelectasis. 5. No acute abnormality within the abdomen or pelvis identified. This exam was performed according to our departmental dose-optimization program, which includes automated exposure control, adjustment of the mA and/or kV according to patient size and/or use of iterative reconstruction technique. Assessment & Plan - Diagnosis (1) Lymphadenopathy Is this a current diagnosis for this admission?: Yes
[2017-11-14] MEDS ORDERED: MORPHINE SULFATE 10 MG/ML INJ ONE (09:15)
[2017-11-14] MEDS ORDERED: DEXMEDETOMIDINE INJ 80 MCG/20 ML VIAL IV ONE (09:43)
[2017-11-14] MEDS ORDERED: NORMAL SALINE 1000 ML 1,000 ML IV PRN (10:08)
--- NOTE | 2017-11-14 11:00 | OPERATIVE REPORT E ---
Operative Report NAME: KHADIJAH RICE : 1985 AGE: 32Y DATE OF SURGERY: 11/14/2017 ROOM: 321 PREOPERATIVE DIAGNOSIS: Left axillary and left neck lymph nodes. POSTOPERATIVE DIAGNOSIS: Left axillary and left neck lymph nodes. PROCEDURE: Left axillary node dissection. SURGEON: BALDEMAR BATISTA M.D. ANESTHESIA: General. INDICATIONS: This is a 32-year-old male who was noted to have a gradually enlarging mass on the left axillary area and in the left neck area. Patient needed a biopsy at least of the bigger node on the left axillary area. DESCRIPTION OF PROCEDURE: After adequate general anesthesia, patient was placed in supine position and the left axillary area prepped and draped in the usual sterile fashion. A transverse incision was made at the anterior axillary line just below the axilla about 6 cm long. The incision was deepened down to the subcutaneous area and the initial lymph node noted. This roughly measured about 4 cm wide. Blunt and sharp dissection was then performed and cautery was used to control any bleeding. The other areas that were suspicious for lymphatic connection were then clamped and ligated with 3-0 Vicryl ties. This was then cut between the lymph node and hemostat. This was done serially and going up into the axilla. I was careful not to do anything deeper than to the lymph node because of possible injury to thoracodorsal nerve. The lymph node was then completely removed or at least most of it and the specimen was cut in half, one sent for fresh and one for regular biopsy. Hemostasis was then further achieved with cautery through the axillary area. It was then irrigated with saline solution and no evidence of active bleeding noted. The space was then closed with 3-0 Vicryl and the skin closed with running subcuticular closure using 4-0 Monocryl. Sterile dressing was placed over the operative site. Needle, instrument, and sponge counts were all correct. Estimated blood loss was about 20 mL. DICTATING PHYSICIAN: BALDEMAR BATISTA M.D. [id number] PHY#: [id number] ID: [id number] JOB#: [id number] ACCT: [id number] cc:BALDEMAR BATISTA M.D. >
[2017-11-14] MEDS: OXYCODONE-ACETAMINOPHEN 5-325 MG TABLET PO PRN ×2 (11:11→15:56)
[2017-11-14] MEDS: DOCUSATE SODIUM 100 MG CAPSULE PO SCH ×2 (11:11→17:15)
[2017-11-14] MEDS ORDERED: DEXAMETHASONE SOD PHOSPHATE INJ 4 MG/1 ML VIAL ONE (14:47)
--- NOTE | 2017-11-14 15:05 | PDOC DISCHARGE SUMMARY ---
General - Admit/Disc Date/PCP Admission Date/Primary Care Provider: 11/13/17 01:47 Discharge Date: 11/14/17 - Discharge Diagnosis (1) Edema Is this a current diagnosis for this admission?: Yes (2) Lymphadenopathy Is this a current diagnosis for this admission?: Yes Summary: Excision and biopsy (3) Pleural effusion Is this a current diagnosis for this admission?: Yes - Additional Information Resuscitation Status: Full Code Discharge Diet: As Tolerated Discharge Activity: Activity As Tolerated Prescriptions: Oxycodone HCl/Acetaminophen [Percocet 5-325 mg Tablet] 1 tab PO Q4HP PRN #14 tablet PRN Reason: Home Medications: Buprenorphine HCl [Subutex 8 mg Sublingual Tablet] 8 mg SL TID 11/13/17 Dextroamphetamine/Amphetamine [Adderall 10 mg Tablet] 10 mg PO DAILY 11/13/17 Ibuprofen [Motrin 800 mg Tablet] 800 mg PO Q8HP PRN 11/13/17 Oxycodone HCl/Acetaminophen [Percocet 5-325 mg Tablet] 1 tab PO Q4HP PRN #14 tablet 11/14/17 History of Present Illness History of Present Illness: KHADIJAH RICE is a 32 year old male who has a 1-2 month history of swollen lymph nodes in the left axilla and neck. Patient reports that this "swelling" is worsening and has spread to his right axilla. Patient presented to the emergency department where CT scan was performed noting multiple enlarged lymph nodes in the supraclavicular, axillary , and mediastinal positions. The patient denies any chest pain, shortness of breath, fevers, chills, nausea, vomiting, malaise, fatigue, orthostasis, dizziness, or other significant symptom. Nothing makes his lymphadenopathy better or worse. Hospital Course Hospital Course: Patient was admitted for a biopsy and he underwent excisional biopsy today by general surgery. Will follow up with hematology oncologist as outpatient review of his biopsy result and further management. Patient has been hemodynamically stable with no further interventions been planned he has been discharged home for outpatient follow-up Both general surgery and oncologist were consulted. Physical Exam Vital Signs: Temp Pulse Resp BP Pulse Ox 97.7 F 66 14 120/65 97 11/14/17 11:37 11/14/17 11:37 11/14/17 11:37 11/14/17 11:37 11/14/17 11:37 Intake & Output 11/13/17 11/14/17 11/15/17 06:59 06:59 06:59 Intake Total 250 1571 1050 Output Total 0 10 Balance 250 1571 1040 Weight 108.3 kg 107.9 kg General appearance: PRESENT: no acute distress, well-developed, well-nourished Head exam: PRESENT: atraumatic, normocephalic Eye exam: PRESENT: conjunctiva pink, EOMI, PERRLA. ABSENT: scleral icterus Ear exam: PRESENT: normal external ear exam Mouth exam: PRESENT: moist, tongue midline Neck exam: ABSENT: carotid bruit, JVD, lymphadenopathy, thyromegaly Respiratory exam: PRESENT: clear to auscultation sujata. ABSENT: rales, rhonchi, wheezes Cardiovascular exam: PRESENT: RRR. ABSENT: diastolic murmur, rubs, systolic murmur Pulses: PRESENT: normal dorsalis pedis pul Vascular exam: PRESENT: normal capillary refill GI/Abdominal exam: PRESENT: normal bowel sounds, soft. ABSENT: distended, guarding, mass, organolmegaly, rebound, tenderness Rectal exam: PRESENT: deferred Extremities exam: PRESENT: full ROM, other - Left axillary lymphadenopathy. ABSENT: calf tenderness, clubbing, pedal edema Neurological exam: PRESENT: alert, awake, oriented to person, oriented to place , oriented to time, oriented to situation, CN II-XII grossly intact. ABSENT: motor sensory deficit Psychiatric exam: PRESENT: appropriate affect, normal mood. ABSENT: homicidal ideation, suicidal ideation Skin exam: PRESENT: dry, intact, warm. ABSENT: cyanosis, rash Results Laboratory Results: 11/14/17 05:12 11/14/17 05:12 11/14/17 11/14/17 05:12 05:12 WBC 14.9 H RBC 3.87 L Hgb 11.0 L Hct 32.2 L MCV 83 MCH 28.3 MCHC 34.0 RDW 13.2 Plt Count 337 Seg Neutrophils % 73.2 Lymphocytes % 13.1 Monocytes % 10.8 Eosinophils % 2.5 Basophils % 0.4 Absolute Neutrophils 10.9 H Absolute Lymphocytes 1.9 Absolute Monocytes 1.6 H Absolute Eosinophils 0.4 Absolute Basophils 0.1 Sodium 141.9 Potassium 4.8 Chloride 107 Carbon Dioxide 28 Anion Gap 7 BUN 14 Creatinine 0.65 Est GFR ( Amer) > 60 Est GFR (Non-Af Amer) > 60 Glucose 111 H Calcium 8.7 Impressions: Chest X-Ray 11/12/17 21:59 IMPRESSION: SMALL TO MODERATE LEFT PLEURAL EFFUSION. LUNGS OTHERWISE CLEAR. Abdomen/Pelvis CT 11/13/17 00:00 IMPRESSION: 1. No central pulmonary embolus identified. Evaluation of the segmental and subsegmental pulmonary arterial branches is suboptimal due to contrast bolus timing. 2. Extensive left axillary lymphadenopathy with the largest lymph node measuring 5.5 cm in greatest dimension. Some of these lymph nodes demonstrate central decreased density which may represent necrosis. 3. There is also lymphadenopathy in the right axillary region as well as the left supraclavicular region as detailed above. There are also increased number of visualized mediastinal lymph nodes however these are not enlarged by CT criteria. 4. Small left pleural effusion with mild left basilar compressive atelectasis. 5. No acute abnormality within the abdomen or pelvis identified. This exam was performed according to our departmental dose-optimization program, which includes automated exposure control, adjustment of the mA and/or kV according to patient size and/or use of iterative reconstruction technique. Chest/Abdomen CTA 11/13/17 00:00 IMPRESSION: 1. No central pulmonary embolus identified. Evaluation of the segmental and subsegmental pulmonary arterial branches is suboptimal due to contrast bolus timing. 2. Extensive left axillary lymphadenopathy with the largest lymph node measuring 5.5 cm in greatest dimension. Some of these lymph nodes demonstrate central decreased density which may represent necrosis. 3. There is also lymphadenopathy in the right axillary region as well as the left supraclavicular region as detailed above. There are also increased number of visualized mediastinal lymph nodes however these are not enlarged by CT criteria. 4. Small left pleural effusion with mild left basilar compressive atelectasis. 5. No acute abnormality within the abdomen or pelvis identified. This exam was performed according to our departmental dose-optimization program, which includes automated exposure control, adjustment of the mA and/or kV according to patient size and/or use of iterative reconstruction technique. Qualifiers - * PATIENT BEING DISCHARGED WITH ANY OF THE FOLLOWING DIAGNOSIS: No Plan Time Spent: Less than 30 Minutes
[2017-11-14 16:28] VITALS: BP 134/80
--- NOTE | 2017-11-21 17:47 | Progress Note ---
Provider Note Provider Note: Pathology resolved fevers Hodgkin's and B-cell lymphoma but the case is still being referred for outside expect consultation. A definitive diagnosis cannot be made with this information although likely the patient has lymphoma
== END 2017-11-14 17:45 | disposition home or self-care (01) | DRG 824 ==
LOC: ER 21:09 → EH 11-13 01:47 → 3W 11-13 03:19
PROVIDERS: ADMIT Internal Medicine; ATTEND Internal Medicine
PROC: 07B60ZX Excision of Left Axillary Lymphatic, Open Approach, Diagnostic (ICD-10-PCS; principal; 2017-11-14 08:15)
DX: C85.14 Unspecified B-cell lymphoma, lymph nodes of axilla and upper limb (principal); J90 Pleural effusion, not elsewhere classified; F90.9 Attention-deficit hyperactivity disorder, unspecified type; F17.210 Nicotine dependence, cigarettes, uncomplicated
CPT/HCPCS: 1610; 36415; 71046; 71275; 74177; 80048; 80053; 81001; 83615; 83735; 83880; 84443; 85025; 88184; 88185; 88233; 88262; 88307; 88341; 88342; 93005; 93010; 94640; 99285; J0571; J0690; J1100; J1644; J2250; J2270; J2704; J3010; J3490; J7030; J7620

== ENCOUNTER → 2017-11-30 | Outpatient (CLI) | payer SELFPAY ==
--- NOTE | 2017-12-01 08:42 | RADIOLOGY REPORT (SQ) ---
EXAM DESCRIPTION: PET CT SKULL/THIGH COMPLETED DATE/TIME: 11/30/2017 7:40 pm REASON FOR STUDY: LYMPHOMA R59.1 GENERALIZED ENLARGED LYMPH NODES COMPARISON: CT chest abdomen pelvis 11/13/2017 RADIONUCLIDE AND DOSE: 85 mCi F18 FDG The route of agent administration: Intravenous FASTING BLOOD SUGAR: 10 mg/dl CONTRAST TYPE AND DOSE: No CT contrast given. TECHNIQUE: Blood glucose level was verified. Above dose of FDG was injected intravenously. 2-D seg mented attenuation correction images were obtained from the base of the skull to the midthighs. Nonc ontrast CT images were obtained for attenuation correction and fusion with emission images. CT image s were performed without oral or intravenous contrast and are not sensitive for parenchymal lesions. A series of overlapping emission PET images were obtained. Images reviewed and manipulated at [facility] work station by the radiologist. Images stored on PACS. LIMITATIONS: None. FINDINGS: HEAD AND NECK: There is adenopathy in the left neck involving the carotid space, posterior triangle and supraclavicular regions, the largest index lymph node is in the left supraclavicular re gion posteriorly axial image 56, 2.3 x 1.8 cm in size with SUV 14.5. CHEST: There are multiple enlarged bilateral axillary, prevascular, subcarinal, left hilar, and retro crural lymph nodes in the chest. Index lesion are as follows: Right axilla lymph node 3.2 x 2 cm in size, axial image 84, SUV 17.1 Left axilla 5.2 x 3.2 cm in size axial image 89, SUV 16.3. Prevascular 2.6 x 2 cm in size axial image 84, SUV 13 Subcentimeter retrocrural lymph node axial image 139, SUV 7.6 ABDOMEN AND PELVIS: One enlarged external iliac lymph node on the right, 2.3 x 1.7 cm axial image 224 with SUV 14.1. PROXIMAL LOWER EXTREMITIES: No areas of abnormal metabolic activity in the soft tissues of the lower extremities. BONES: No abnormal metabolic activity in the visualized skeleton. ADDITIONAL CT FINDINGS: Gynecomastia, stones in the gallbladder. Small left pleural effusion. Serom a left axilla post lymph node biopsy. OTHER: Liver background activity 2.0 SUV. Blood pool background activity 1.0 SUV IMPRESSION: Hypermetabolic enlarged lymph nodes in the neck chest and pelvis as above, compatible wi th clinical diagnosis of lymphoma. Small left pleural effusion, slightly larger than on 11/13/2017 TECHNICAL DOCUMENTATION: JOB ID: [id number] [employer]- All Rights Reserved Reading location - IP/workstation name: [email or web address]
== END ==
LOC: RAD 17:22
PROVIDERS: ATTEND Internal Medicine Hematology & Oncology
DX: C83.38 Diffuse large B-cell lymphoma, lymph nodes of multiple sites (principal)
CPT/HCPCS: 78815; A9552

== ENCOUNTER → 2017-12-08 | Outpatient (CLI) | payer SELFPAY ==
--- NOTE | 2017-12-08 12:01 | RADIOLOGY REPORT (SQ) ---
EXAM DESCRIPTION: NM MUGA REST COMPLETED DATE/TIME: 12/08/2017 10:45 am REASON FOR STUDY: ANTHRACYCLINE USE,OTHER NON-FOLLICULAR LYMPHOMA, I Z08 ENCNTR FOR FOLLOW-UP EXAM AFTER TRTMT FOR MALIGNANT NEOP Z13.6 ENCOUNTER FOR SCREENING FOR CARDIOVASCULAR DISORDERS Z51.11 EN COUNTER FOR ANTINEOPLASTIC CHEMOTHERAPY COMPARISON: None. RADIONUCLIDE AND DOSE: 26.7 mCi technetium 99m labeled red blood cells The route of agent administration: Intravenous TECHNIQUE: Following administration of the radionuclide, gated images of the heart are obtained in t hree projections. Left ventricular functional analysis performed. LIMITATIONS: None. FINDINGS: LEFT VENTRICULAR FUNCTION: EJECTION FRACTION: 74%. END-DIASTOLIC VOLUME: 157 mL. END-SYSTOLIC VOLUME: 34 mL. WALL MOTION: No focal wall motion abnormalities. OTHER: No other significant finding. IMPRESSION: NORMAL CARDIAC MUGA STUDY. NORMAL LEFT VENTRICULAR FUNCTION WITH VALUES ABOVE. TECHNICAL DOCUMENTATION: JOB ID: [id number] [employer]- All Rights Reserved Reading location - IP/workstation name: [email or web address]
== END ==
LOC: RAD 12-04 14:23
PROVIDERS: ATTEND Internal Medicine Hematology & Oncology
DX: Z08 Encounter for follow-up examination after completed treatment for malignant neoplasm (principal); C83.83 Other non-follicular lymphoma, intra-abdominal lymph nodes; Z13.6 Encounter for screening for cardiovascular disorders
CPT/HCPCS: 78472; A9560; Q9969

== ENCOUNTER 2017-12-10 10:54 | Outpatient (CLI) | payer SELFPAY ==
[~2017-12-10 10:54] MED LIST: CYCLOPHOSPHAMIDE IV PRN; DEXAMETHASONE SOD PHOSPHATE 10 MG in NORMAL SALINE 50 ML IV PRN; DISPOSABLE IV PRN; DOXORUBICIN HCL IV PRN; FOSAPREPITANT DIMEGLUMINE 150 MG in NORMAL SALINE 150 ML IV PRN; NORMAL SALINE 500 ML IV PRN; NORMAL SALINE IV PRN; PALONOSETRON 0.25 MG/5 ML SDV IV PRN; VINCRISTINE SULFATE 2 MG in SYRINGE, DISPOSABLE, 1 EACH IV PRN
[2017-12-10 12:11] VITALS: BP 136/85
== END 2017-12-10 15:30 | disposition home or self-care (01) ==
LOC: II 10:54 → 5TH 12:13 → II 15:30
PROVIDERS: ATTEND Internal Medicine Hematology & Oncology
PROC: 3E03305 Introduction of Other Antineoplastic into Peripheral Vein, Percutaneous Approach (ICD-10-PCS; principal; 2017-12-10)
PROC: 3E0333Z Introduction of Anti-inflammatory into Peripheral Vein, Percutaneous Approach (ICD-10-PCS; 2017-12-10)
PROC: 3E033GC Introduction of Other Therapeutic Substance into Peripheral Vein, Percutaneous Approach (ICD-10-PCS; 2017-12-10)
DX: C83.38 Diffuse large B-cell lymphoma, lymph nodes of multiple sites (principal)
CPT/HCPCS: 96411; 96413; 96367; 96375; 96417; J9070; J9000; J7040; J3490; J1100; J1453; J2469; J9370; 96409

== ENCOUNTER 2017-12-11 07:55 | Outpatient (CLI) | payer SELFPAY ==
[~2017-12-11 07:55] MED LIST changes: +ACETAMINOPHEN 325 MG TABLET PO PRN; -CYCLOPHOSPHAMIDE IV PRN; -DEXAMETHASONE SOD PHOSPHATE 10 MG in NORMAL SALINE 50 ML IV PRN; +DIPHENHYDRAMINE HCL 50 MG/ML VIAL IV PRN; -DISPOSABLE IV PRN; -DOXORUBICIN HCL IV PRN; -FOSAPREPITANT DIMEGLUMINE 150 MG in NORMAL SALINE 150 ML IV PRN; +NORMAL SALINE 250 ML IV PRN; -NORMAL SALINE 500 ML IV PRN; -PALONOSETRON 0.25 MG/5 ML SDV IV PRN; +RITUXIMAB IV PRN; -VINCRISTINE SULFATE 2 MG in SYRINGE, DISPOSABLE, 1 EACH IV PRN
[2017-12-11] MEDS ORDERED: RITUXIMAB IV PRN (08:11)
[2017-12-11] MEDS ORDERED: NORMAL SALINE IV PRN (08:11)
[2017-12-11 08:47] VITALS: BP 113/53
== END 2017-12-11 12:30 | disposition home or self-care (01) ==
LOC: II 07:55 → 5TH 07:58 → II 12:30
PROVIDERS: ATTEND Internal Medicine Hematology & Oncology
PROC: 3E0330M Introduction of Antineoplastic, Monoclonal Antibody, into Peripheral Vein, Percutaneous Approach (ICD-10-PCS; principal; 2017-12-11)
PROC: 3E033GC Introduction of Other Therapeutic Substance into Peripheral Vein, Percutaneous Approach (ICD-10-PCS; 2017-12-11)
DX: C83.38 Diffuse large B-cell lymphoma, lymph nodes of multiple sites (principal)
CPT/HCPCS: 96413; 96415; 96375; J1200; J7040; J9310 ×2

== ENCOUNTER 2017-12-12 13:13 | Outpatient (CLI) | payer SELFPAY ==
[~2017-12-12 13:13] MED LIST changes: -ACETAMINOPHEN 325 MG TABLET PO PRN; -DIPHENHYDRAMINE HCL 50 MG/ML VIAL IV PRN; -NORMAL SALINE 250 ML IV PRN; -NORMAL SALINE IV PRN; +PEGFILGRASTIM INJ 6 MG/0.6 ML DISP.SYRIN SUBCUT PRN; -RITUXIMAB IV PRN
[2017-12-12 14:05] VITALS: BP 106/57
== END 2017-12-12 14:35 | disposition home or self-care (01) ==
LOC: II 13:13 → 5TH 13:20 → II 14:35
PROVIDERS: ATTEND Internal Medicine Hematology & Oncology
PROC: 3E013GC Introduction of Other Therapeutic Substance into Subcutaneous Tissue, Percutaneous Approach (ICD-10-PCS; principal; 2017-12-12)
DX: Z76.89 Persons encountering health services in other specified circumstances (principal); C83.38 Diffuse large B-cell lymphoma, lymph nodes of multiple sites
CPT/HCPCS: 96372; J2505

== ENCOUNTER 2018-01-01 09:53 | Outpatient (CLI) | payer MEDICAID ==
[~2018-01-01 09:53] MED LIST changes: +ACETAMINOPHEN 325 MG TABLET PO PRN; +CYCLOPHOSPHAMIDE IV PRN; +DEXAMETHASONE SOD PHOSPHATE 10 MG in NORMAL SALINE 50 ML IV PRN; +DIPHENHYDRAMINE HCL 50 MG/ML VIAL IV PRN; +DISPOSABLE IV PRN; +DOXORUBICIN HCL IV PRN; +FOSAPREPITANT DIMEGLUMINE 150 MG in NORMAL SALINE 150 ML IV PRN; +NORMAL SALINE 500 ML IV PRN; +NORMAL SALINE IV PRN; +PALONOSETRON 0.25 MG/5 ML SDV IV PRN; -PEGFILGRASTIM INJ 6 MG/0.6 ML DISP.SYRIN SUBCUT PRN; +RITUXIMAB IV PRN; +VINCRISTINE SULFATE 2 MG in SYRINGE, DISPOSABLE, 1 EACH IV PRN
[2018-01-01 10:39] VITALS: BP 110/64
[2018-01-01 11:02] LABS: ALANINE AMINOTRANSFERASE 50 U/L (21-72); ALBUMIN 3.8 g/dL (3.5-5.0); ALKALINE PHOSPHATASE 77 U/L (38-126); ANION GAP 8 (5-19); ASPARTATE AMINO TRANSFERASE 33 U/L (17-59); BILIRUBIN,DIRECT 0.3 mg/dL (0.0-0.4); BILIRUBIN,TOTAL 0.3 mg/dL (0.2-1.3); BLOOD UREA NITROGEN 16 mg/dL (7-20); CALCIUM 9.5 mg/dL (8.4-10.2); CARBON DIOXIDE 31 mmol/L (22-30); CHLORIDE 103 mmol/L (98-107); GLUCOSE 94 mg/dL (75-110); POTASSIUM 4.8 mmol/L (3.6-5.0); SODIUM 141.9 mmol/L (137-145); TOTAL PROTEIN 6.7 g/dL (6.3-8.2)
== END 2018-01-01 16:06 | disposition home or self-care (01) ==
LOC: II 09:53 → 5TH 10:43 → II 16:06
PROVIDERS: ATTEND Internal Medicine Hematology & Oncology
PROC: 3E0330M Introduction of Antineoplastic, Monoclonal Antibody, into Peripheral Vein, Percutaneous Approach (ICD-10-PCS; principal; 2018-01-01)
PROC: 3E03305 Introduction of Other Antineoplastic into Peripheral Vein, Percutaneous Approach (ICD-10-PCS; 2018-01-01)
PROC: 3E0333Z Introduction of Anti-inflammatory into Peripheral Vein, Percutaneous Approach (ICD-10-PCS; 2018-01-01)
PROC: 3E033GC Introduction of Other Therapeutic Substance into Peripheral Vein, Percutaneous Approach (ICD-10-PCS; 2018-01-01)
DX: C83.38 Diffuse large B-cell lymphoma, lymph nodes of multiple sites (principal)
CPT/HCPCS: 36415; 80053; 96409; 96411; 96413; 96415; 96367; 96374; 96375; 96360; 96417; J3490 ×2; J9070; J1200; J9000; J7040; J1100; J1453; J2469; J9310; J9370; 96361; J2505

== ENCOUNTER 2018-01-02 14:13 | Outpatient (CLI) | payer MEDICAID ==
[~2018-01-02 14:13] MED LIST changes: -ACETAMINOPHEN 325 MG TABLET PO PRN; -CYCLOPHOSPHAMIDE IV PRN; -DEXAMETHASONE SOD PHOSPHATE 10 MG in NORMAL SALINE 50 ML IV PRN; -DIPHENHYDRAMINE HCL 50 MG/ML VIAL IV PRN; +DIPHENHYDRAMINE HCL 50 MG/ML VIAL ONE; -DISPOSABLE IV PRN; -DOXORUBICIN HCL IV PRN; -FOSAPREPITANT DIMEGLUMINE 150 MG in NORMAL SALINE 150 ML IV PRN; -NORMAL SALINE 500 ML IV PRN; -NORMAL SALINE IV PRN; -PALONOSETRON 0.25 MG/5 ML SDV IV PRN; +PEGFILGRASTIM INJ 6 MG/0.6 ML DISP.SYRIN SUBCUT PRN; -RITUXIMAB IV PRN; -VINCRISTINE SULFATE 2 MG in SYRINGE, DISPOSABLE, 1 EACH IV PRN
[2018-01-02 14:58] VITALS: BP 120/70
== END 2018-01-02 14:58 | disposition home or self-care (01) ==
LOC: II 14:13 → 5TH 14:16 → II 14:58
PROVIDERS: ATTEND Internal Medicine
PROC: 3E013GC Introduction of Other Therapeutic Substance into Subcutaneous Tissue, Percutaneous Approach (ICD-10-PCS; principal; 2018-01-02)
DX: Z76.89 Persons encountering health services in other specified circumstances (principal); C83.38 Diffuse large B-cell lymphoma, lymph nodes of multiple sites
CPT/HCPCS: J1200; J2505

== ENCOUNTER 2018-01-07 07:08 | Day surgery (SDC) | payer MEDICAID ==
[~2018-01-07 07:08] MED LIST changes: +ACETAMINOPHEN 325 MG TABLET PO PRN; +CEFAZOLIN 1 GM/D5W RTU 1 GM/50 ML RTUPB IV PRN; -DIPHENHYDRAMINE HCL 50 MG/ML VIAL ONE; -PEGFILGRASTIM INJ 6 MG/0.6 ML DISP.SYRIN SUBCUT PRN; +RINGERS SOLUTION,LACTATED 1,000 ML IV PRN
[2018-01-07] MEDS ORDERED: LIDOCAINE 1%/EPINEPHRINE INJ 20 ML VIAL ONE ×2 (07:10→09:42)
[2018-01-07] MEDS ORDERED: MIDAZOLAM 2 MG/2 ML INJ ONE (09:08)
[2018-01-07] MEDS ORDERED: PROPOFOL INJ 200 MG/20 ML VIAL IV ONE (09:08)
[2018-01-07] MEDS ORDERED: FENTANYL CITRATE INJ/PF 100 MCG/2 ML AMPUL ONE (09:08)
[2018-01-07 09:15] LABS: HEMATOCRIT 30.7 % (37.9-51.0); HEMOGLOBIN 10.5 g/dL (13.5-17.0); MEAN CORPUSCULAR HEMOGLOBIN 28.8 pg (27.0-33.4); MEAN CORPUSCULAR HGB CONC 34.1 g/dL (32.0-36.0); MEAN CORPUSCULAR VOLUME 85 fl (80-97); PLATELET COUNT 235 10^3/uL (150-450); RED BLOOD COUNT 3.63 10^6/uL (4.35-5.55); RED CELL DISTRIBUTION WIDTH 18.2 % (11.5-14.0); WHITE BLOOD COUNT 9.3 10^3/uL (4.0-10.5)
[2018-01-07] MEDS ORDERED: MEPERIDINE HCL/PF INJ 25 MG/1 ML DISP.SYRIN IV PRN (09:38)
[2018-01-07] MEDS ORDERED: FENTANYL CITRATE INJ/PF 100 MCG/2 ML AMPUL IV PRN ×3 (09:38)
[2018-01-07] MEDS ORDERED: DIPHENHYDRAMINE HCL 50 MG/ML VIAL IV PRN (09:38)
[2018-01-07] MEDS ORDERED: PROMETHAZINE HCL INJ 25 MG/1 ML VIAL IV PRN ×2 (09:38)
[2018-01-07] MEDS ORDERED: OXYCODONE-ACETAMINOPHEN 5-325 MG TABLET PO PRN ×3 (09:38→10:13)
--- NOTE | 2018-01-07 10:13 | Operative Report ---
Operative Report DATE OF SURGERY: 01/07/18 PREOPERATIVE DIAGNOSIS: B-cell lymphoma POSTOPERATIVE DIAGNOSIS: Same OPERATION: 1. Focused ultrasound of the right neck with mapping of the right internal jugular vein. 2. Placement of right subclavian single-chamber Infuse- a-Port catheter. 3. Use of intraoperative fluoroscopy for guidance, and interpretation of imaging. SURGEON: [employer] PH[employer]GRAPH EDITOR: JENNIFER CULVER ANESTHESIA: Moderate Sedation TISSUE REMOVED OR ALTERED: See below COMPLICATIONS: None ESTIMATED BLOOD LOSS: Minimal INTRAOPERATIVE FINDINGS: See below PROCEDURE: Patient was taken to the main operating room where LMAC anesthesia was induced. Neck chest wall prepped and draped in sterile fashion Surgical plan and surgical timeout conducted. The right neck was scanned with a variable frequency linear transducer. Findings were significant for patent, compressible right internal jugular vein. The skin was Constance 1% plain lidocaine. Using the microneedle and wire, the right internal jugular vein was cannulated successfully. A suitable site for placement of the port was chosen the right subclavian position. Skin was Constance 1% plain lidocaine, 2 cm incision made with a knife, a pocket developed large enough to accommodate the port. The catheter was then trimmed to the appropriate length, tunnel between the 2 incisions. Catheter was attached to the port with the ring. The micro wire was switched over to a conventional guidewire under fluoroscopic guidance using the micro-introducer sheath. The dilator and introducer sheath 9 Mongolian without threaded over the conventional guidewire, guidewire dilator removed leaving the strip away sheath and appropriate position. The catheter was then threaded into the right internal jugular vein and strip away sheath removed all under fluoroscopic guidance. We aspirated and flushed the catheter with heparinized saline. There was no evidence of kinking of the catheter. Images were retained for the record. Tip of the catheter is at the junction of the right atrium in the superior vena cava. We felt the operation was complete. Sponge and needle counts were correct. Wounds closed with 3-0 Vicryl benzoin Steri-Strips. Patient procedure well, taken to recovery in stable condition.
--- NOTE | 2018-01-07 10:13 | Discharge Summary ---
Discharge Summary (SDC) - Discharge Final Diagnosis: B cell lymphoma Date of Surgery: 01/07/18 Discharge Date: 01/07/18 Condition: Stable Treatment or Instructions: WOUND CARE: 1) Do not get area wet for 48 hours. At that time you may shower. Allow warm water and soap to wash over area. Do not scrub. Leave paper band aids (steri strips) intact until follow up. 2) Minimal drainage is expected. If you feel more comfortable you may cover the wound with gauze and tape. PAIN MANAGEMENT: 1) You may take Toradol 10mg on pill by mouth every six hours as needed for pain. FOLLOW UP: 1) Follow up at [facility] in 7-10 days for wound evaluation. Call clinic sooner with questions/concerns or unusual bleeding, swelling, foul- smelling drainage or difficulty breathing. Prescriptions: Ketorolac Tromethamine [Toradol 10 mg Tablet] 10 mg PO Q6HP PRN #20 tablet PRN Reason: Discharge Diet: As Tolerated Discharge Activity: No Lifting/Push/Pulling, Walk Frequently Report the Following to Your Physician Immediately: Shortness of Breath, Increase in Pain, Fever over 101 Degrees, Unusual Bleeding, Redness, Drainage- Foul Smelling
--- NOTE | 2018-01-07 12:01 | RADIOLOGY REPORT (SQ) ---
EXAM DESCRIPTION: FLUORO/CV PLACEMENT COMPLETED DATE/TIME: 01/07/2018 10:52 am REASON FOR STUDY: PORTACATH PLCMT RIGHT SIDE ASST WITH FLUORO IN OR C83.38 DIFFUSE LARGE B-CELL LYM PHOMA, LYMPH NODES OF MULTIPL COMPARISON: None. FLUOROSCOPY TIME: 0.2 minutes 2 images saved to PACS. TECHNIQUE: Intra-operative images acquired during surgical procedure to evaluate progress. NUMBER OF IMAGES: 2 LIMITATIONS: None. FINDINGS: Selected images from right-sided port placement. Tip overlies SVC. IMPRESSION: IMAGE(S) OBTAINED DURING PROCEDURE. COMMENT: Quality ID 145: Final reports for procedures using fluoroscopy that document radiation exp osure indices, or exposure time and number of fluorographic images (if radiation exposure indices are not available) Please consult full operative report of the attending physician for description of the procedure. TECHNICAL DOCUMENTATION: JOB ID: [id number] [employer]- All Rights Reserved Reading location - IP/workstation name: [email or web address]
[2018-01-07 12:45] VITALS: BP 106/69
== END 2018-01-07 12:15 | disposition home or self-care (01) ==
LOC: OROUT 07:08
PROVIDERS: ATTEND Surgery
DX: C83.38 Diffuse large B-cell lymphoma, lymph nodes of multiple sites (principal); C85.90 Non-Hodgkin lymphoma, unspecified, unspecified site; F90.9 Attention-deficit hyperactivity disorder, unspecified type; F17.210 Nicotine dependence, cigarettes, uncomplicated; Z79.899 Other long term (current) drug therapy; Z79.1 Long term (current) use of non-steroidal anti-inflammatories (NSAID)
CPT/HCPCS: 36415; 85027; 77001; 36561; C1752; C1788; J2250; J0690; J3010; J3490; J2704; J1642; 532

== ENCOUNTER → 2018-03-16 | Outpatient (CLI) | payer MEDICAID ==
--- NOTE | 2018-03-16 16:01 | RADIOLOGY REPORT (SQ) ---
EXAM DESCRIPTION: CT CHEST WITH COMPLETED DATE/TIME: 03/16/2018 3:37 pm REASON FOR STUDY: C83.38 DIFFUSE LARGE B-CELL LYMPHOMA, LYMPH NODES OF MULTIPLE SITES C83.38 DIFFUS E LARGE B-CELL LYMPHOMA, LYMPH NODES OF MULTIPL COMPARISON: PET-CT dated 11/30/2017. CT chest dated 11/13/2017. TECHNIQUE: CT scan of the chest performed using helical scanning technique with dynamic intravenous contrast injection. Images reviewed with lung, soft tissue and bone windows. Reconstructed coronal and sagittal MPR and MIP images reviewed. All images stored on PACS. All CT scanners at this facility use dose modulation, iterative reconstruction, and/or weight based d osing when appropriate to reduce radiation dose to as low as reasonably achievable (ALARA). [facility]: Dose Right [facility]: CareDose [facility]: Dose Right [facility]: Teradose 4D [facility]: Parudi CONTRAST TYPE AND DOSE: 100 mL Omnipaque 350- low osmolar. RENAL FUNCTION: None required. The patient is less than 50 years old. RADIATION DOSE: . LIMITATIONS: None. FINDINGS: LUNGS AND PLEURA: No opacities, nodules, masses. No pneumothorax. Small left pleural eff usion which has decreased in size. HILAR AND MEDIASTINAL STRUCTURES: Previously seen mild mediastinal adenopathy has resolved No identif ied masses or abnormal nodes. HEART AND VASCULAR STRUCTURES: No aneurysm or dissection. No central pulmonary emboli. No pericardi al effusion. HARDWARE: Vascular port. UPPER ABDOMEN: No significant findings. Limited exam. THYROID AND OTHER SOFT TISSUES: No masses. BONES: No significant finding. OTHER: Previously seen supraclavicular adenopathy and right axillary adenopathy has completely resolv ed with no residual lymph node enlargement. Significant improvement in the left axillary adenopathy. Currently there is only 1 enlarged lymph node which measures 1.4 cm. Prior measurement 3.0 cm. IMPRESSION: 1. SIGNIFICANT IMPROVEMENT IN PREVIOUSLY SEEN ADENOPATHY WHICH HAS ESSENTIALLY RESOLVED IN THE MEDIAS TINUM, RIGHT AXILLA, AND SUPRACLAVICULAR REGION. LEFT AXILLARY ADENOPATHY HAS ALMOST COMPLETELY RESO LVED WITH ONLY A SINGLE RESIDUAL LYMPH NODE MEASURING 1.4 CM. 2. SMALL LEFT PLEURAL EFFUSION WHICH HAS DECREASED IN SIZE SINCE THE PRIOR PET SCAN. TECHNICAL DOCUMENTATION: JOB ID: [id number] Quality ID # [id number]: Final reports with documentation of one or more dose reduction techniques (e.g., Au tomated exposure control, adjustment of the mA and/or kV according to patient size, use of iterative reconstruction technique) 2010 [employer]- All Rights Reserved Reading location - IP/workstation name: [email or web address]
--- NOTE | 2018-03-16 16:10 | RADIOLOGY REPORT (SQ) ---
EXAM DESCRIPTION: CT ABD/PELVIS WITH IV ORAL COMPLETED DATE/TIME: 03/16/2018 3:37 pm REASON FOR STUDY: C83.38 C83.38 DIFFUSE LARGE B-CELL LYMPHOMA, LYMPH NODES OF MULTIPL COMPARISON: PET-CT dated 11/30/2017. CT dated 11/13/2017. TECHNIQUE: CT scan of the abdomen and pelvis performed with intravenous and oral contrast using aura lucille scanning technique with dynamic intravenous contrast injection. Images reviewed with lung, soft t issue, and bone windows. Reconstructed coronal and sagittal MPR images reviewed. Delayed images for e valuation of the urinary system also acquired. All images stored on PACS. All CT scanners at this facility use dose modulation, iterative reconstruction, and/or weight based d osing when appropriate to reduce radiation dose to as low as reasonably achievable (ALARA). [facility]: Dose Right [facility]: CareDose [facility]: Dose Right [facility]: Teradose 4D [facility]: [employer] [place] CONTRAST TYPE AND DOSE: contrast/concentration: Isovue 350.00 mg/ml; Total Contrast Delivered: 100.0 ml; Total Saline Delivered: 72.0 ml RENAL FUNCTION: None required. The patient is less than 50 years old. RADIATION DOSE: CT Rad equipment meets quality standard of care and radiation dose reduction techniq ues were employed. CTDIvol: 9.6 - 13.5 mGy. DLP: 1898 mGy-cm.. LIMITATIONS: None. FINDINGS: LOWER CHEST: See separate report of the CT of the chest. LIVER: Normal size. No masses. No dilated ducts. SPLEEN: Normal size. No focal lesions. PANCREAS: No masses. No significant calcifications. No adjacent inflammation or peripancreatic fluid collections. Pancreatic duct not dilated. GALLBLADDER: No identified stones by CT criteria. No inflammatory changes to suggest cholecystitis. ADRENAL GLANDS: No significant masses or asymmetry. RIGHT KIDNEY AND URETER: No solid masses. No significant calcification. No hydronephrosis or hydroure ter. LEFT KIDNEY AND URETER: No solid masses. No significant calcification. No hydronephrosis or hydrouret er. AORTA AND VESSELS: No aneurysm. No dissection. Renal arteries, SMA, celiac without stenosis. RETROPERITONEUM: No retroperitoneal adenopathy, hemorrhage or masses. BOWEL AND PERITONEAL CAVITY: No obstruction. No visualized masses. No free fluid. No inflammatory ch anges or thickening of bowel wall. APPENDIX: Normal. PELVIS: No significant masses. Previously seen right external iliac lymph node has decreased in size . Prior measurement 1.7 x 2.3 cm and current measurement 6 x 9 mm. Normal bladder. No free fluid. ABDOMINAL WALL: No masses. No hernias. BONES: No significant or acute findings. OTHER: No other significant finding. IMPRESSION: PREVIOUSLY SEEN ENLARGED RIGHT EXTERNAL ILIAC LYMPH NODE HAS DECREASED IN SIZE. NO OTHE R ADENOPATHY IS PRESENT. NO OTHER SIGNIFICANT OR ACUTE FINDINGS IN THE ABDOMEN OR PELVIS. TECHNICAL DOCUMENTATION: JOB ID: [id number] Quality ID # [id number]: Final reports with documentation of one or more dose reduction techniques (e.g., Au tomated exposure control, adjustment of the mA and/or kV according to patient size, use of iterative reconstruction technique) 2010 [employer]- All Rights Reserved Reading location - IP/workstation name: [email or web address]
== END ==
LOC: RAD 17:49
PROVIDERS: ATTEND Internal Medicine Hematology & Oncology
DX: C83.38 Diffuse large B-cell lymphoma, lymph nodes of multiple sites (principal); J90 Pleural effusion, not elsewhere classified
CPT/HCPCS: 71260; 74177

== ENCOUNTER → 2018-07-12 | Outpatient (CLI) | payer MEDICAID ==
--- NOTE | 2018-07-13 08:06 | RADIOLOGY REPORT (SQ) ---
EXAM DESCRIPTION: PET CT SKULL/THIGH COMPLETED DATE/TIME: 07/12/2018 7:09 pm REASON FOR STUDY: LYMPHOMA C83.38 DIFFUSE LARGE B-CELL LYMPHOMA, LYMPH NODES OF MULTIPL COMPARISON: PET-CT 11/30/2017 CT chest abdomen pelvis 03/16/2018, 11/13/2017 RADIONUCLIDE AND DOSE: 10.4 mCi F18 FDG The route of agent administration: Intravenous FASTING BLOOD SUGAR: 100 mg/dl CONTRAST TYPE AND DOSE: No CT contrast given. TECHNIQUE: Blood glucose level was verified. Above dose of FDG was injected intravenously. 2-D seg mented attenuation correction images were obtained from the base of the skull to the midthighs. Nonc ontrast CT images were obtained for attenuation correction and fusion with emission images. CT image s were performed without oral or intravenous contrast and are not sensitive for parenchymal lesions. A series of overlapping emission PET images were obtained. Images reviewed and manipulated at [facility] work station by the radiologist. Images stored on PACS. LIMITATIONS: None. FINDINGS: HEAD AND NECK: No areas of abnormal metabolic activity in the soft tissues of the head and neck. CHEST: No areas of abnormal metabolic activity in the chest. ABDOMEN AND PELVIS: No areas of abnormal metabolic activity in the abdomen or pelvis. Expected physi ologic activity is present in the genitourinary system and bowel. PROXIMAL LOWER EXTREMITIES: No areas of abnormal metabolic activity in the soft tissues of the lower extremities. BONES: No abnormal metabolic activity in the visualized skeleton. ADDITIONAL CT FINDINGS: Right-sided permanent central line tip superior vena cava OTHER: Liver background activity 2.0 SUV. Blood pool background activity 1.7 SUV IMPRESSION: No hypermetabolic lymph nodes worrisome for recurrent or residual lymphoma. TECHNICAL DOCUMENTATION: JOB ID: [id number]- All Rights Reserved Reading location - IP/workstation name: [facility]
== END ==
LOC: RAD 15:19
PROVIDERS: ATTEND Internal Medicine Hematology & Oncology
DX: C83.38 Diffuse large B-cell lymphoma, lymph nodes of multiple sites (principal)
CPT/HCPCS: 78815; A9552

== ENCOUNTER → 2019-01-15 | Outpatient (CLI) | payer MEDICAID ==
--- NOTE | 2019-01-15 13:27 | WOMENS IMAGING REPORT ---
EXAM DESCRIPTION: BILAT DIAGNOSTIC MAMMO W/CAD; U/S BREAST UNILATERAL, COMPL COMPLETED DATE/TIME: 01/15/2019 11:17 am; 01/15/2019 11:31 am REASON FOR STUDY: N62.0; N62 HYPERTROPHY OF BREAST N62 HYPERTROPHY OF BREAST COMPARISON: CT chest 03/16/2018 PET-CT 07/12/2018 EXAM PARAMETERS: Standard craniocaudal and mediolateral oblique views of each breast recorded using digital acquisition. Left male breast ultrasound was performed, with comparison right retroareolar images Read with the assistance of CAD: .[facility] - [employer] Version 9.2 LIMITATIONS: None. FINDINGS: RIGHT BREAST MASSES: No suspicious masses. CALCIFICATIONS: No new or suspicious calcifications. ARCHITECTURAL DISTORTION: None. DEVELOPING DENSITY: None. ASYMMETRY: None noted. OTHER: Mild right gynecomastia in the retroareolar region, benign in appearance LEFT BREAST MASSES: No suspicious masses. CALCIFICATIONS: No new or suspicious calcifications. ARCHITECTURAL DISTORTION: None. DEVELOPING DENSITY: None. ASYMMETRY: None noted. OTHER: Mild left gynecomastia in the retroareolar region, benign in appearance. There is also diffus e left-sided breast skin thickening without focal skin lesions by mammography Left male breast ultrasound was performed. Comparison right ultrasound scanning was also performed. On the left side, mild retroareolar gynecomastia is present, benign in appearance. There is diffuse left male breast skin thickening. Limited comparison right retroareolar images demonstrate minimal retroareolar gynecomastia, benign. IMPRESSION: No mammographic or sonographic evidence for breast cancer bilaterally. There is mild bilateral gynecomastia, and diffuse left male breast skin thickening, similar compared to prior PET-CT exam 07/12/2018 BREAST DENSITY: a. The breasts are almost entirely fatty. BIRAD: ASSESSMENT: 2 Benign findings. RECOMMENDATION: RECOMMENDED FOLLOW UP: Clinical follow-up recommended SPECIFIC INTERVENTION/IMAGING/CONSULTATION RECOMMENDED:No additional intervention/ imaging/consultati on needed at this time. COMMUNICATION:The negative/benign results were communicated to the patient. COMMENT: The patient has been notified of the results by letter per MQSA requirements. Additional no tification policies are in place for contacting patient with suspicious or incomplete findings. Quality ID #225: The [employer] recommends an annual screening mammogram for women aged 40 years or over. This facility utilizes a reminder system to ensure that all patients receive reminder letters, and/or direct phone calls for appointments. This includes reminders for routine scr eening mammograms, diagnostic mammograms, or other Breast Imaging Interventions when appropriate. Th is patient will be placed in the appropriate reminder system. TECHNICAL DOCUMENTATION: FINDING NUMBER: (1) ASSESSMENT: (1) JOB ID: [id number] [employer]- All Rights Reserved Reading location - IP/workstation name: [email or web address]
--- NOTE | 2019-01-15 13:27 | WOMENS IMAGING REPORT ---
EXAM DESCRIPTION: BILAT DIAGNOSTIC MAMMO W/CAD; U/S BREAST UNILATERAL, COMPL COMPLETED DATE/TIME: 01/15/2019 11:17 am; 01/15/2019 11:31 am REASON FOR STUDY: N62.0; N62 HYPERTROPHY OF BREAST N62 HYPERTROPHY OF BREAST COMPARISON: CT chest 03/16/2018 PET-CT 07/12/2018 EXAM PARAMETERS: Standard craniocaudal and mediolateral oblique views of each breast recorded using digital acquisition. Left male breast ultrasound was performed, with comparison right retroareolar images Read with the assistance of CAD: .[facility] - [employer] Version 9.2 LIMITATIONS: None. FINDINGS: RIGHT BREAST MASSES: No suspicious masses. CALCIFICATIONS: No new or suspicious calcifications. ARCHITECTURAL DISTORTION: None. DEVELOPING DENSITY: None. ASYMMETRY: None noted. OTHER: Mild right gynecomastia in the retroareolar region, benign in appearance LEFT BREAST MASSES: No suspicious masses. CALCIFICATIONS: No new or suspicious calcifications. ARCHITECTURAL DISTORTION: None. DEVELOPING DENSITY: None. ASYMMETRY: None noted. OTHER: Mild left gynecomastia in the retroareolar region, benign in appearance. There is also diffus e left-sided breast skin thickening without focal skin lesions by mammography Left male breast ultrasound was performed. Comparison right ultrasound scanning was also performed. On the left side, mild retroareolar gynecomastia is present, benign in appearance. There is diffuse left male breast skin thickening. Limited comparison right retroareolar images demonstrate minimal retroareolar gynecomastia, benign. IMPRESSION: No mammographic or sonographic evidence for breast cancer bilaterally. There is mild bilateral gynecomastia, and diffuse left male breast skin thickening, similar compared to prior PET-CT exam 07/12/2018 BREAST DENSITY: a. The breasts are almost entirely fatty. BIRAD: ASSESSMENT: 2 Benign findings. RECOMMENDATION: RECOMMENDED FOLLOW UP: Clinical follow-up recommended SPECIFIC INTERVENTION/IMAGING/CONSULTATION RECOMMENDED:No additional intervention/ imaging/consultati on needed at this time. COMMUNICATION:The negative/benign results were communicated to the patient. COMMENT: The patient has been notified of the results by letter per MQSA requirements. Additional no tification policies are in place for contacting patient with suspicious or incomplete findings. Quality ID #225: The [employer] recommends an annual screening mammogram for women aged 40 years or over. This facility utilizes a reminder system to ensure that all patients receive reminder letters, and/or direct phone calls for appointments. This includes reminders for routine scr eening mammograms, diagnostic mammograms, or other Breast Imaging Interventions when appropriate. Th is patient will be placed in the appropriate reminder system. TECHNICAL DOCUMENTATION: FINDING NUMBER: (1) ASSESSMENT: (1) JOB ID: [id number] [employer]- All Rights Reserved Reading location - IP/workstation name: [email or web address]
== END ==
LOC: WI 10:53
PROVIDERS: ATTEND Nurse Practitioner Family
DX: N62 Hypertrophy of breast (principal)
CPT/HCPCS: 76641; 77066

== ENCOUNTER 2019-02-28 13:27 | Emergency (ER) | payer MEDICAID ==
[2019-02-28 13:33] VITALS: BP 127/87
[2019-02-28] MEDS ORDERED: LIDOCAINE 2% VISCOUS SOLN 20 ML UDCUP PO ONE (13:33)
--- NOTE | 2019-02-28 13:46 | ER Document Report ---
HPI - HPI Time Seen by Provider: 02/28/19 13:39 Notes: Patient is a 33-year-old male who presents to the ED complaining of Rt lower dental pain #28 x2 days with swelling x1 day. He has not noticed any obvious abscess or purulent discharge. Patient states that he is still able to eat and drink, but does have a decreased p.o. intake due to the pain. He has tried some eglt-wql-[id number] meds with minimal relief. No other concerns or complaints. Denies any headache, fever, head injury, neck pain, hoarseness, drooling, URI, sore throat, chest pain, palpitations, syncope, cough, shortness of breath, wheeze, dyspnea, abdominal pain, nausea/vomiting/diarrhea, urinary retention, dysuria, hematuria, or rash. PMH of lymphoma- in remission. - ROS Systems Reviewed and Negative: Yes All other systems reviewed and negative Past Medical History - Social History Smoking Status: Current Every Day Smoker Family History: Hypertension - Past Medical History Cardiac Medical History: Denies: Hx Coronary Artery Disease, Hx Heart Attack, Hx Hypertension Pulmonary Medical History: Denies: Hx Asthma, Hx Bronchitis, Hx COPD, Hx Pneumonia Neurological Medical History: Denies: Hx Cerebrovascular Accident, Hx Seizures Renal/ Medical History: Denies: Hx Peritoneal Dialysis Musculoskeletal Medical History: Denies Hx Arthritis Psychiatric Medical History: Reports: Hx Attention Deficit Hyperactivity Di sorder Past Surgical History: Reports: Hx Tonsillectomy - Immunizations Hx Diphtheria, Pertussis, Tetanus Vaccination: No Vertical Provider Document - CONSTITUTIONAL Agree With Documented VS: Yes Notes: PHYSICAL EXAMINATION: GENERAL: Well-appearing, well-nourished and in no acute distress. HEAD: Atraumatic, normocephalic. EYES: Pupils equal round and reactive to light, extraocular movements intact, sclera anicteric, conjunctiva are normal. ENT: EAC clear b/l. TM's intact b/l without erythema, fluid, or perforation. Nares patent and without discharge. oropharynx clear without exudates. No tonsilar hypertrophy or erythema. Moist mucous membranes. No sinus tenderness. Uvula midline. No palatine shift. No tongue protrusion. No respiratory compromise. Mouth: Poor dentition. + severe decay and mild gingivitis. No obvious abscess or discharge noted. + mild rt lower facial swelling. + tenderness to tooth #28. NECK: Normal range of motion, supple without lymphadenopathy. No rigidity/meningismus. LUNGS: Breath sounds clear to auscultation bilaterally and equal. No wheezes rales or rhonchi. HEART: Regular rate and rhythm without murmurs, rubs, gallops. NEUROLOGICAL: Cranial nerves grossly intact. Normal speech, normal gait. PSYCH: Normal mood, normal affect. SKIN: Warm, Dry, normal turgor, no rashes or lesions noted. - INFECTION CONTROL TRAVEL OUTSIDE OF THE [place] IN LAST 30 DAYS: No Course - Re-evaluation Re-evalutation: 02/28/19 13:45 Patient is an afebrile, well-hydrated, 33-year-old male who presents to the ED with dental pain, suspect nerve root etiology versus infection. Vitals are acceptable. PE is otherwise unremarkable. No I&D, labs, or imaging warranted at this time based on H&P. Viscous lidocaine dispensed today. I will send him home with a prescription for cleocin. Low suspicion for any meningitis, sepsis, peritonsillar/pharyngeal abscess, respiratory compromise, Mando's, temporal arteritis, or other emergent systemic condition at this time. Patient is aware this condition can change from initial presentation and he needs to monitor symptoms closely. Conservative measures otherwise for symptoms. Call to schedule an appointment with a dentist for further evaluation and management. Recheck with your PCM this week as well. Return to the ED with any worsenin g/concerning symptoms otherwise as reviewed in discharge. Patient is in agreement. - Vital Signs Vital signs: Temp Pulse Resp BP Pulse Ox 98.4 F 65 16 127/87 H 98 02/28/19 13:31 02/28/19 13:31 02/28/19 13:31 02/28/19 13:31 02/28/19 13:31 Discharge - Discharge Clinical Impression: Pain, dental Condition: Stable Disposition: HOME, SELF-CARE Instructions: Clindamycin ([facility]), Toothache ([facility]) Additional Instructions: [place] and floss twice daily Maintain fluid intake Take antibiotics as directed Mouthwash, salt water gargles, peroxide rinse as needed Tylenol/ibuprofen as needed Recheck with PCM this week Call today/tomorrow and schedule an appointment with your dentist for further evaluation Return to the ED with any worsening symptoms and/or development of fever, headache, facial swelling, swelling of lips/tongue/throat, trouble swallowing, drooling, hoarseness, neck pain/stiffness, chest pain, palpitations, syncope, shortness of breath, trouble breathing, abdominal pain, n/v/d, numbness/tingling, or other worsening symptoms that are concerning to you. Prescriptions: Clindamycin HCl [Cleocin 300 mg Capsule] 300 mg PO TID #30 capsule Forms: Elevated Blood Pressure, Smoking Cessation Education Referrals: SHRAVAN ROBLEDO FNP-C [Primary Care Provider] - Follow up as needed [facility] [Provider Group] - Follow up as needed
== END 2019-02-28 13:57 | disposition home or self-care (01) ==
LOC: ER 13:27
DX: K02.9 Dental caries, unspecified (principal); K05.10 Chronic gingivitis, plaque induced; K08.89 Other specified disorders of teeth and supporting structures; R22.0 Localized swelling, mass and lump, head; F17.200 Nicotine dependence, unspecified, uncomplicated
CPT/HCPCS: 99282; J3490